=== PATIENT | male | born 1940 | race Caucasian/White ===

== ENCOUNTER 2018-04-01 16:06 | Emergency (ER) | payer MEDICARE ==
--- NOTE | 2018-04-01 16:43 | ED ---
Psychiatric Complaint - HPI Summary HPI Summary: This pt is a 77 y/o male presenting to [facility] for auditory and visual hallucinations since a couple of days ago. Pt reports that he has been seeing pictures very vividly and colorful as well as hearing his speak when she never did. He states usually his hallucinations happen when sleeping and waking up. Pt describes today he had a box of cookies that he was handing his but realized he didn't have anything at all. Per , pt had just started to wake up and was handing something to her that he didn't have physically. Denies slurred speech, abnormal gait, chest pain, SOB, fever. Pt reports hx of anxiety dreams in the past. Recent changes include new CPAP machine and pt believes the new ozone pipe cleaner is causing his hallucinations. Pt called his PCP (Dr. Emerson) and was advised to come to the ED. The last time he saw his PCP was 1 week ago for a routine visit where he had blood work and a flu shot. PMHx includes diabetes, anxiety, depression. - History Of Current Complaint Chief Complaint: EDGeneral Time Seen by Provider: 04/01/18 16:13 Hx Obtained From: Patient Onset/Duration: Lasting Days - 2, Still Present Timing: Days Severity Currently: Moderate Character: Anxious Aggravating Factor(s): Nothing Alleviating Factor(s): Nothing Associated Signs And Symptoms: Positive: Hallucinating Has Suicidal: Denies: Thoughts, With A Plan Has Homicidal: Denies: Thoughts, With A Plan - Allergies/Home Medications Allergies/Adverse Reactions: Allergies Allergy/AdvReac Type Severity Reaction Status Date / Time No Known Allergies Allergy Verified 04/01/18 16:11 Home Medications: Home Medications ARIPiprazole TAB* [Abilify TAB*] 5 mg PO BEDTIME 04/01/18 [History Confirmed ] Aspirin EC TAB* [Ecotrin EC Low Dose 81 MG*] 81 mg PO DAILY 04/01/18 [History Confirmed 04/01/18] Atorvastatin* [Lipitor*] 80 mg PO DAILY 04/01/18 [History Confirmed 04/01/18] Azelastine 0.15% NASAL(NF) [Astepro 0.15% NASAL (NF)] 2 spray BOTH NARES BID PRN 04/01/18 [History Confirmed 04/01/18] Cinnamon Bark [Cinnamon] 500 mg PO DAILY 04/01/18 [History Confirmed 04/01/18] Cyanocobalamin TAB* [Vitamin B12 TAB*] 1,000 mcg PO DAILY 04/01/18 [History Confirmed 04/01/18] Dicyclomine CAP* [Bentyl CAP*] 10 mg PO QID PRN 04/01/18 [History Confirmed 06/08] Fluticasone NASAL SPRAY 50MCG* [Flonase NASAL SPRAY 50MCG*] 2 spray BOTH NARES DAILY PRN 04/01/18 [History Confirmed 04/01/18] Glucosa Greene 2Kcl/Chondroitin Greene [Glucosamine & Chondroitin Cap] 2 cap PO DAILY [History Confirmed 04/01/18] Hyoscyamine TAB* [Anaspaz 0.125 MG TAB*] 0.125 mg PO Q6H PRN 04/01/18 [History Confirmed 04/01/18] LORazepam TAB(*) [Ativan 0.5 MG TAB (*)] 0.5 mg PO Q8H PRN 04/01/18 [History Confirmed 04/01/18] Levothyroxine TAB* [Synthroid TAB*] 25 mcg PO QAM 04/01/18 [History Confirmed ] Lisinopril TAB* [Prinivil TAB*] 20 mg PO DAILY 04/01/18 [History Confirmed 04/01] Metoprolol Tartrate TAB* [Lopressor TAB*] 50 mg PO BID 04/01/18 [History Confirmed 04/01/18] Miconazole Nitrate [Athletes Foot Powder] 2 % TOPICAL BID 04/01/18 [History Confirmed 04/01/18] Multivitamin [Daily Multiple Vitamins] 1 tab PO DAILY 04/01/18 [History Confirmed 04/01/18] Neomycin/Polym/HC OPTH.SUSP* [Cortisporin OPHTH.SUSP*] 2 drop BOTH EARS TID PRN 04/01/18 [History Confirmed 04/01/18] [place]-3 Fatty Acids (Nf) [Fish Oil (NF)] 1,000 mg PO DAILY 04/01/18 [History Confirmed 04/01/18] Sertraline* [Zoloft*] 200 mg PO DAILY 04/01/18 [History Confirmed 04/01/18] Torsemide TAB* [Demadex*] 20 mg PO DAILY 04/01/18 [History Confirmed 04/01/18] Triamcinolone 0.1% CREAM(NF) [Kenalog Cream 0.1%(NF)] 1 applic TOPICAL DAILY PRN 04/01/18 [History Confirmed 04/01/18] Vitamin B Complex TAB* [B Complex-50*] 1 tab PO DAILY 04/01/18 [History Confirmed 04/01/18] amLODIPine TAB* [Norvasc 5 mg TAB*] 10 mg PO DAILY 04/01/18 [History Confirmed 04/01/18] metFORMIN* [Glucophage 500 MG TAB *] 500 mg PO BID 04/01/18 [History Confirmed 04/01/18] traZODone TAB* [Desyrel TAB*] 50 mg PO BEDTIME PRN 04/01/18 [History Confirmed 04/01/18] PMH/Surg Hx/FS Hx/Imm Hx Endocrine/Hematology History: Reports: Hx Diabetes Cardiovascular History: Reports: Hx Hypercholesterolemia, Hx Hypertension Respiratory History: Reports: Hx Sleep Apnea History: Reports: Hx Chronic Renal Failure Psychiatric History: Reports: Hx Anxiety, Hx Depression Infectious Disease History: No Infectious Disease History: Denies: Traveled Outside the [place] in Last 30 Days - Family History Known Family History: Positive: Cardiac Disease, Hypertension - Social History Alcohol Use: None Substance Use Type: Reports: None Smoking Status (MU): Never Smoked Tobacco Review of Systems Negative: Fever, Chills Negative: Chest Pain Negative: Shortness Of Breath Negative: Abdominal Pain Psychological: Other - visual and auditory hallucinations All Other Systems Reviewed And Are Negative: Yes Physical Exam - Summary Physical Exam Summary: Appearance: The patient is well-nourished in no acute distress and in no acute pain. Skin: The skin is warm and dry and skin color reflects adequate perfusion. HEENT: The head is normocephalic and atraumatic. The pupils are equal and reactive. The conjunctivae are clear and without drainage. Nares are patent and without drainage. Mouth reveals moist mucous membranes and the throat is without erythema and exudate. The external ears are intact. The ear canals are patent and without drainage. The tympanic membranes are intact. Neck: the neck is supple with full range of motion and non-tender. There are no carotid bruits. There is no neck vein distension. Respiratory: Chest is non-tender. Lungs are clear to auscultation and breath sounds are symmetrical and equal. Cardiovascular: Heart is regular rate and rhythm. There is no murmur or rub auscultated. There is no peripheral edema and pulses are symmetrical and equal. Abdomen: The abdomen is soft and non-tender. There are normal bowel sounds heard in all four quadrants and there is no organomegaly palpated. Musculoskeletal: There is no back tenderness noted. Extremities are non-tender with full range of motion. There is good capillary refill. There is no peripheral edema or calf tenderness elicited. Neurological: Patient is alert and oriented to person, place and time. The patient has symmetrical motor strength in all four extremities. Cranial nerves are grossly intact. Deep tendon reflexes are symmetrical and equal in all four extremities. Psychiatric: The patient has an appropriate affect and does not exhibit any anxiety or depression. Triage Information Reviewed: Yes Vital Signs On Initial Exam: Initial Vitals Temp Pulse Resp BP Pulse Ox 97.4 F 96 16 145/64 99 04/01/18 16:09 04/01/18 16:09 04/01/18 16:09 04/01/18 16:09 04/01/18 16:09 Vital Signs Reviewed: Yes Diagnostics - Vital Signs Vital Signs Temp Pulse Resp BP Pulse Ox 04/01/18 16:09 97.4 F 96 16 145/64 99 - Laboratory Result Diagrams: 04/01/18 17:09 04/01/18 17:09 Lab Statement: Any lab studies that have been ordered have been reviewed, and results considered in the medical decision making process. Re-Evaluation - Re-Evaluation First Eval Re-Evaluation Time: 19:00 Comment: I reviewed lab results with the pt. He will be discharged home with follow up from his PCP. Course/Dx - Course Course Of Treatment: Mr. Saba presented with what sounded like hypnagogic hallucinations. He uses a CPAP to sleep and hasn't been sleeping well secondary to low back pain. His workup here was unremarkable and this made just be because he is not sleeping well. I recommended we try treating him with tramadol at night so that he can sleep better and get close follow-up with Dr. remington flores for further workup. We discussed the addictive nature of tramadol and he is willing to take a short course only. - Differential Dx/Clinical Impression Provider Diagnosis: Hypnagogic hallucinations Discharge - Sign-Out/Discharge Documenting (check all that apply): Patient Departure - Discharge - Discharge Plan Condition: Stable Disposition: HOME Prescriptions: traMADol TAB* [Ultram*] 50 mg PO Q6HR PRN #20 tab MDD 4 PRN Reason: Pain Patient Education Materials: Tramadol (By mouth) Referrals: Kodi Emerson MD [Primary Care Provider] - Additional Instructions: Please follow up with your primary care provider in 2-3 days. RETURN TO THE ED FOR ANY WORSENING SYMPTOMS. - Billing Disposition and Condition Condition: STABLE Disposition: Home - Attestation Statements Document Initiated by Scribe: Yes Documenting Scribe: Adriana Alvarez Provider For Whom Scribe is Documenting (Include Credential): Johnson Meyer MD Scribe Attestation: Adriana Trejo, scribed for Johnson Meyer MD on 04/01/18 at 2111. Scribe Documentation Reviewed: Yes Provider Attestation: The documentation as recorded by the Adriana macdonald accurately reflects the service I personally performed and the decisions made by , Johnson Meyer MD
[2018-04-01 17:23] LABS: ABS Basophils 0 10^3/ul (0-0.2); ABS Eosinophils 0.2 10^3/ul (0-0.6); ABS Lymphocytes 1.2 10^3/ul (1.0-4.8); ABS Monocytes 0.5 10^3/ul (0-0.8); ABS Neutrophils 3.6 10^3/ul (1.5-7.7); ABS Nucleated RBC 0 10^3/ul; Hematocrit 38 % (42-52); Hemoglobin 12.6 g/dl (14.0-18.0); Lymphocyte % 22.5 % (25-47); Mean Corpuscular HGB Conc 34 g/dl (31-36); Mean Corpuscular Hemoglobin 31 pg (27-31); Mean Corpuscular Volume 92 fL (80-94); Mean Platelet Volume 7.9 um3 (7.4-10.4); Nucleated Red Blood Cells % 0; Platelet Count 157 10^3/ul (150-450); Red Blood Count 4.07 10^6/ul (4.00-5.40); Red Cell Distribution Width 15 % (10.5-15); White Blood Count 5.5 10^3/ul (3.5-10.8)
[2018-04-01 17:48] LABS: EGFR Non-African American 38.6 (>60)
[2018-04-01 19:42] VITALS: BP 116/69
== END 2018-04-01 19:43 | disposition home or self-care (01) ==
LOC: ED 16:06
DX: R44.2 Other hallucinations (principal); E11.8 Type 2 diabetes mellitus with unspecified complications; E78.00 Pure hypercholesterolemia, unspecified; I10 Essential (primary) hypertension; Z79.84 Long term (current) use of oral hypoglycemic drugs
CPT/HCPCS: 36415; 80053; 82140; 83735; 84100; 85025; 86140; 99283

== ENCOUNTER 2018-12-16 06:20 | Day surgery (SDC) | payer MEDICARE ==
[2018-12-16] MEDS ORDERED: Lidocaine 2% PF * 5 ML VIAL ONE (07:51)
[2018-12-16] MEDS ORDERED: fentaNYL* 50 MCG/ML 2 ML VIAL (100 MCG VIAL) ONE (07:51)
[2018-12-16] MEDS ORDERED: Propofol* 10 MG/ML 20 ML BTL ONE (07:51)
[2018-12-16] MEDS ORDERED: Lidocaine 1% INJ* 10 MG/ML 30 ML SDV ONE (08:12)
[2018-12-16] MEDS ORDERED: Naloxone* 0.4 MG/ML 1 ML VIAL IV PRN (08:33)
[2018-12-16 10:29] VITALS: BP 114/60
--- NOTE | 2018-12-16 13:18 | OP ---
CC: Dr. Pérez* OPERATIVE REPORT: DATE OF OPERATION: 12/16/18 - SDS DATE OF : 38 SURGEON: Nicole Pérez MD. EDITING INTERN: SYLVIA Guerrero. ANESTHESIOLOGIST: Rodrick Patton MD. ANESTHESIA: Local MAC. 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 OPERATIVE PROCEDURE: Left ring finger trigger release and correction of boutonniere deformity. ESTIMATED BLOOD LOSS: Zero. TOURNIQUET TIME: About 30 minutes. INDICATION FOR PROCEDURE: Delbert is a 78-year-old male who has a flexion deformity of his ring finger PIP joint secondary to trigger finger. He has a contracture and a resultant boutonniere deformity, presents for trigger finger release and correction of the boutonniere deformity. DESCRIPTION OF PROCEDURE: The patient was brought to the operating room, was given a sedation anesthetic and a digital block with 10 cc of 1% plain lidocaine. The skin of his left hand and forearm was prepped and draped in usual sterile fashion. The hand and forearm were exsanguinated and tourniquet elevated to 250 mmHg, a transverse incision was made centered over the A1 main of the left ring finger. We dissected through the subcutaneous tissue down to the main. Main was incised longitudinally completely releasing the flexor tendons, which were in good condition. The boutonniere deformity remained, but we were able to correct it some with manual traction at the PIP joint. A longitudinal incision was made on the dorsal aspect from the PIP to the DIP joint. We dissected full-thickness skin flaps down to the extensor mechanism. The terminal tendon was incised transversely just distal to the triangular ligament. The transverse retinacular ligaments were released and this allowed the central tendon to centralize over the PIP joint. We then sutured the lateral bands to each other and to the central tendon dorsally to improve the extensor moment at the PIP joint and we gently flexed the DIP joint to improve that motion as well. There was still some tightness and contracture at the PIP joint. The wounds were irrigated and skin edges were reapproximated with 4-0 nylon suture. The wounds were dressed with Xeroform, 4x4, Webril and a AlumaFoam splint to help keep the PIP joint in extension. The patient tolerated the procedure well, was brought to the recovery room in good condition. [id number]/[facility] #: [id number] DHAVAL
== END 2018-12-16 10:41 | disposition home or self-care (01) ==
LOC: OR 06:20
PROVIDERS: ATTEND Orthopaedic Surgery
DX: M20.022 Boutonniere deformity of left finger(s) (principal); G47.33 Obstructive sleep apnea (adult) (pediatric); Z87.891 Personal history of nicotine dependence; Z68.42 Body mass index [BMI] 45.0-49.9, adult; E03.9 Hypothyroidism, unspecified; F41.8 Other specified anxiety disorders; E11.9 Type 2 diabetes mellitus without complications; Z79.84 Long term (current) use of oral hypoglycemic drugs
CPT/HCPCS: J2704; J3010

== ENCOUNTER 2018-12-23 11:04 | Inpatient (IN) | payer MEDICARE ==
--- OUTSIDE RECORDS SUMMARY | 2018-12-23 11:31 | XMS REPORT | Continuity of Care Document ---
:1940 External Reference #:[id number] Author Name Kodyamy Keerthi Care Team Providers Name Role Phone Kodi Emerson MD Primary Care Physician Unavailable Payers Date Identification Numbers Payment Provider Subscriber Policy Number: [id number] Medicare Blue Ppo Delbert Saba PayID: [id number] [address] [address] [place] [address] Advance Directives Description No Information Available Problems Description No Information Family History Date Family Member(s) Observation Comments General Heart Disease General Hypertension Social History Type Date Description Comments Sex Unknown Lives With Spouse Occupation Retired ETOH Use Rarely consumes alcohol Tobacco Use Start: Unknown End: Patient is a former quit 35 years ago Unknown smoker Smoking Status Reviewed: 11/24/18 Patient is a former quit 35 years ago smoker Exercise Type/Frequency Exercises sporadically Allergies, Adverse Reactions, Alerts Description No Known Drug Allergies Medications Active Medications SIG Qnty Indications Ordering Date Provider Vitamin B Complex-C Unknown Capsules Triamcinolone Acetonide apply to affected Unknown area twice a day 0.025% Cream for 2-3 days as need for dermatiits Torsemide 1 by mouth every Unknown 20mg Tablets day Sertraline HCL 1 by mouth every Unknown 100mg day Tablets Aspirin 81 Unknown [place] 3 1 by mouth twice a Unknown 1000mg Capsules day Neomycin/Polymyxin/Hydr Unknown ocortisone (Ophthalmic) Lorazepam Unknown 0.5mg Tablets Hyoscyamine Sulfate one by mouth three Unknown 0.125mg times a day as Tablets needed for cramps Glucosamine Chondroitin Unknown 1500 Complex 1500Com Capsules Fluticasone Propionate 2 puffs each nare Unknown every in the 50mcg/Act Suspension morning Daily-Vitamin by mouth every day Unknown Tablets Cyanocobalamin Unknown Cinnamon Unknown Trazodone HCL Kodi Emerson, 50mg Tablets Tramadol HCL Johnson Meyer, 50mg Tablets Metformin HCL Kodi Emerson, 1000mg MD Tablets Lisinopril Kodi Emerson, 20mg Tablets Levothyroxine Sodium Kodi Emerson, 25mcg MD Tablets Dicyclomine HCL Kodi Emerson, 10mg MD Capsules Amlodipine Besylate Kodi Emerson, 10mg MD Tablets Aripiprazole Kodi Emerson, 5mg Tablets Atorvastatin Calcium Jorge Atic, 80mg Genaro Carney MD Tablets Medications Administered in Office Medication SIG Qnty Indications Ordering Provider Date Depomedrol 40MG Nicole Pérez M.D. 09/29/2018 Injection Immunizations Description No Information Available Vital Signs Date Vital Result Comment 11/24/2018 11:03am Height 68 inches 5'8" Weight 299.75 lb Heart Rate 62 /min BP Systolic 148 mmHg BP Diastolic 62 mmHg Body Temperature 97.8 F Pain Level 1 BMI (Body Mass Index) 45.6 kg/m2 10/16/2018 9:52am Height 68 inches 5'8" Weight 308.00 lb BP Systolic 140 mmHg BP Diastolic 76 mmHg Respiratory Rate 18 /min Body Temperature 95.7 F Pain Level 0 BMI (Body Mass Index) 46.8 kg/m2 09/29/2018 9:16am Height 68 inches 5'8" Weight 308.00 lb Heart Rate 68 /min BP Systolic 134 mmHg BP Diastolic 72 mmHg Body Temperature 97.8 F Pain Level 5 BMI (Body Mass Index) 46.8 kg/m2 Results Description No Information Available Procedures Date Code Description Status 09/29/2018 75104 Inject Tendon Sheath Or Ligament Aponeurosis Eg Plantar Completed Fascia Encounters Type Date Location Provider Dx Diagnosis Office Visit 10/16/2018 [facility] Nicole Pérez, M65.342 Trigger finger , 9:[facility]a [facility] left ring finger M20.032 [place]-neck deformity of left finger(s) Office Visit 09/29/2018 8:30a [facility] Nicole Pérez M65.342 [facility] finger, left [facility] ring finger Plan of Treatment Future Appointment(s):12/25/2018 11:30 am - Nicole Pérez M.D. at [facility]12/16/2018 7:30 am - PRAKASH Guerrero at [facility]/2018 7:30 am - Nicole Pérez M.D. at [facility]11/24/2018 - SYLVIA Reid-CM65.342 Trigger finger, left ring [id number] [place]-neck deformity of left finger(s)Follow up:Follow up: follow up 9 - 10 days post op
[2018-12-23] MEDS ORDERED: fentaNYL* 50 MCG/ML 2 ML VIAL (100 MCG VIAL) IV SLOW PU ONE (11:40)
[2018-12-23] MEDS ORDERED: Ondansetron INJ* 2 MG/ML VIAL IV ONE (11:41)
[2018-12-23] MEDS ORDERED: NS 0.9% 500 ML* 500 ML IV ONE (11:41)
--- NOTE | 2018-12-23 11:43 | ED ---
Lower Extremity - HPI Summary HPI Summary: This pt is a 78 y/o male presenting to [facility] via EMS for bilateral feet pain and lower back pain for the past few days. Pt reports he has hx of arthritis and multiple surgeries for this (including right shoulder replacement x2, finger surgery last week by Dr. Pérez). Pt states lately he has been unable to get up and move on his own secondary to pain. Denies any radiating pain from his back. Denies urinary or bowel dysfunction, chest pain, SOB. Pt has been taking Tylenol at home as well as pain medications prescribed by Dr. Pérez for his finger with mild relief. Pt has been to physical therapy in the past, most recent when he had his shoulder replaced. PMHx includes arthritis, sleep apnea, DM. Denies hx of CHF, PE, DVT. He uses a CPAP at night at home. Pt does not use oxygen at baseline. NKDA. - History of Current Complaint Chief Complaint: EDExtremityLower Stated Complaint: FOOT PAIN Time Seen by Provider: 12/23/18 11:11 Hx Obtained From: Patient Mechanism Of Injury: Other - no known trauma Onset of Pain: Days Onset/Duration: Days Severity Currently: Moderate Pain Intensity: 5 Pain Scale Used: 0-10 Numeric Timing: Lasting Days Location: Is Discrete @ - bilateral feet Associated Signs And Symptoms: Positive: Swelling, Other - back pain Aggravating Factor(s): Nothing Alleviating Factor(s): Nothing Able to Bear Weight: Yes - Allergies/Home Medications Allergies/Adverse Reactions: Allergies Allergy/AdvReac Type Severity Reaction Status Date / Time No Known Allergies Allergy Verified 12/23/18 11:14 Home Medications: Home Medications Acetaminop/Codeine 30 MG TAB* 1 tab PO Q4H PRN 12/23/18 [History Confirmed 12/23] Dicyclomine CAP* [Bentyl CAP*] 10 mg PO QID PRN 12/23/18 [History Confirmed 11/07] Flonase NASAL SPRAY 50MCG* 2 spray BOTH NARES DAILY PRN 12/23/18 [History Confirmed 12/23/18] Metformin HCl 500 mg PO BID 12/23/18 [History Confirmed 12/23/18] Miconazole TOPICAL CREAM 2%* 1 applic TOPICAL BID 12/23/18 [History Confirmed ] PMH/Surg Hx/FS Hx/Imm Hx Endocrine/Hematology History: Reports: Hx Diabetes - TYPE II- ON ORAL MEDICATION FOR, Hx Thyroid Disease - ON MEDICATION FOR Cardiovascular History: Reports: Hx Hypercholesterolemia, Hx Hypertension - ON MEDICATION FOR Denies: Hx Pacemaker/ICD, Other Cardiovascular Problems/Disorders Respiratory History: Reports: Hx Sleep Apnea GI History: Reports: Hx Irritable Bowel - LOOSE BOWELS OFTEN Denies: Other GI Disorders History: Reports: Hx Chronic Renal Failure Denies: Other Problems/Disorders Musculoskeletal History: Reports: Hx Arthritis - LOWER SPINE, FINGERS, Other Musculoskeletal History - BILATERAL KNEE REPLACEMENT, RIGHT SHOULDER REPLACEMENT X 2 Sensory History: Reports: Hx Cataracts, Hx Contacts or Glasses - READING GLASSES Denies: Hx Hearing Aid Opthamlomology History: Reports: Hx Cataracts, Hx Contacts or Glasses - READING GLASSES Neurological History: Reports: Hx Migraine - HX OF - NONE IN RECENT YEARS, Other Neuro Impairments/Disorders - HANDS WITH A SLIGHT TREMOR Psychiatric History: Reports: Hx Anxiety - ON MEDICATION FOR, Hx Depression - ON MEDICATION FOR - Surgical History Surgery Procedure, Year, and Place: BILATERAL CATARACT REMOVAL WITH LENS IMPLANT. BILATERAL KNEE REPLACEMENT. RIGHT SHOULDER REPLACEMENT X 2. CARPAL TUNNEL RELEASE BILATERAL. RIGHT HAND SURGERY FOR INFECTION. RIGHT FOOT- 2ND TOE SURGERY FOR FRACTURE. [place] SURGERY Hx Anesthesia Reactions: No Infectious Disease History: No Infectious Disease History: Denies: Traveled Outside the [place] in Last 30 Days - Family History Known Family History: Positive: Cardiac Disease, Hypertension - Social History Alcohol Use: Occasionally Alcohol Amount: 1 DRINK INFREQUENTLY Substance Use Type: Reports: None Smoking Status (MU): Former Smoker Amount Used/How Often: PIPE OR CIGARS X 25 YEARS Have You Smoked in the Last Year: No Review of Systems Negative: Fever, Chills Negative: Chest Pain Negative: Shortness Of Breath Negative: incontinence Musculoskeletal: Other - POS: lower back pain, bilateral feet pain All Other Systems Reviewed And Are Negative: Yes Physical Exam - Summary Physical Exam Summary: GENERAL: Patient is a well-developed and nourished male who is lying comfortable in the stretcher. Patient is not in any acute respiratory distress. HEAD AND FACE: Normocephalic EYES: PERRLA, EOMI x 2. EARS: Hearing grossly intact. MOUTH: Oropharynx within normal limits. NECK: Supple, trachea is midline, no adenopathy, no JVD, no carotid bruit. CHEST: Symmetric, no tenderness at palpation LUNGS: Clear to auscultation bilaterally. No wheezing or crackles. CVS: Regular rate and rhythm, S1 and S2 present, no murmurs or gallops appreciated. ABDOMEN: Soft, non-tender. Bowel sounds are normal. No abnormal abdominal pulsations. EXTREMITIES: Full ROM in all major joints, no cyanosis or clubbing. Edema in bilateral lower extremities, worse on the right than the left. RLE is 3+ and LLE is 2+. NEURO: Alert and oriented x 3. No acute neurological deficits. Speech is normal and follows commands. SKIN: Dry and warm Triage Information Reviewed: Yes Vital Signs On Initial Exam: Initial Vitals Temp Pulse Resp BP Pulse Ox 99.4 F 107 22 116/60 97 12/23/18 11:11 12/23/18 11:11 12/23/18 11:11 12/23/18 11:11 12/23/18 11:11 Vital Signs Reviewed: Yes Diagnostics - Vital Signs Vital Signs Temp Pulse Resp BP Pulse Ox 12/23/18 11:11 99.4 F 107 22 116/60 97 - Laboratory Result Diagrams: 12/23/18 12:08 12/23/18 12:08 Lab Statement: Any lab studies that have been ordered have been reviewed, and results considered in the medical decision making process. - CT Chest CTA CT Interpretation Completed By: Radiologist Summary of CT Findings: IMPRESSION: Limited study. No pulmonary arterial filling defect to suggest pulmonary embolism. Dr. Olea has reviewed this report. Lumbar spine CT CT Interpretation Completed By: Radiologist Summary of CT Findings: IMPRESSION: 1. Degenerative disc disease and osteoarthritis. 2. There is severe narrowing of the central canal at L2-L3, L3- L4, and L4-L5 with mild narrowing at L1-L2. 3. There is multilevel neural foraminal narrowing as described above. 4. Atherosclerosis. 5. [address] Olea has reviewed this report. - Ultrasound No standard instances Ultrasound Interpretation Completed By: Radiologist Summary of Ultrasound Findings: Bilateral Lower Extremity US IMPRESSION: No right lower extremity deep vein thrombosis. No left lower extremity deep vein thrombosis. Dr. Olea has reviewed this report. - EKG 11:41 Cardiac Rate: Tachycardia - at 106 bpm Summary of EKG Findings: Junctional rhythm at 106 bpm. Prolonged QT. Left axis deviation. 12:30 Cardiac Rate: Tachycardia - at 103 bpm EKG Rhythm: Sinus Tachycardia Summary of EKG Findings: QT looks better. Left axis deviation. Re-Evaluation - Re-Evaluation First Eval Re-Evaluation Time: 15:25 Comment: Pt reports he is unable to get up and move around. He has difficulty ambulating. Discussed admission plan. He understands and agrees. Lower Extremity Course/Dx - Course Assessment/Plan: Pt is a 78 y/o male, with hx of arthritis, presenting to [facility] via EMS for bilateral feet pain and lower back pain for the past few days. Lab results unremarkable except for H/H of 12.1/36, creatinine of 1.62, glucose of 169. Bilateral lower extremity US is negative for DVT. CTA chest is negative for PE. Lumbar spine CT shows degenerative disc disease and osteoarthritis. Patient is not a safe discharge. Patient has difficulty ambulating. Case discussed with Dr. Wolff, hospitalist, who accepted the pt for admission. I discussed results with patient. The patient agrees with this plan. - Diagnoses Provider Diagnoses: Difficulty walking - Physician Notifications Discussed Care Of Patient With: Sushil Wolff - hospitalist Time Discussed With Above Provider: 15:57 Instructed by Provider To: Admit As Inpatient Discharge - Sign-Out/Discharge Documenting (check all that apply): Patient Departure - Admit to [facility] [place] [facility] Patient Received Moderate/Deep Sedation with Procedure: No - Discharge Plan Condition: Stable Disposition: ADMITTED TO [facility] - Billing Disposition and Condition Condition: STABLE Disposition: Admitted to [facility] - Attestation Statements Document Initiated by Lisa: Yes Documenting Scribe: Adriana Alvarez Provider For Whom Lisa is Documenting (Include Credential): Deonte Olea MD Scribe Attestation: Adriana Trejo, scribed for Deonte Olea MD on 12/23/18 at 1917. Scribe Documentation Reviewed: Yes Provider Attestation: The documentation as recorded by the Adriana macdonald accurately reflects the service I personally performed and the decisions made by me, Deonte Olea MD Status of Scribe Document: Viewed
[2018-12-23 12:37] LABS: ABS Eosinophils 0.1 10^3/ul (0-0.6); ABS Lymphocytes 0.8 10^3/ul (1.0-4.8); ABS Monocytes 0.9 10^3/ul (0-0.8); ABS Neutrophils 7.3 10^3/ul (1.5-7.7); Eosinophil % 0.8 %; Hematocrit 36 % (42-52); Hemoglobin 12.1 g/dL (14.0-18.0); Lymphocyte % 8.5 %; Mean Corpuscular HGB Conc 34 g/dL (31-36); Mean Corpuscular Hemoglobin 31 pg (27-31); Mean Corpuscular Volume 94 fL (80-94); Mean Platelet Volume 7.5 fL (7.4-10.4); Platelet Count 194 10^3/uL (150-450); Red Blood Count 3.84 10^6 /uL (4.18-5.48); Red Cell Distribution Width 14 % (10.5-15)
[2018-12-23 12:48] LABS: Activated Partial Thrombo Time 30.9 seconds (26.0-38.0); Albumin 3.8 g/dL (3.2-5.2); Albumin/Globulin Ratio 1.1 (1-3); BUN/Creatinine Ratio 18.5 (8-20); Calcium 9.1 mg/dL (8.6-10.3); EGFR Non-African American 41.3 (>60); Globulin 3.5 g/dL (2-4); INR 1.19 (0.82-1.09); Potassium 4.9 mmol/L (3.5-5.0); Total Bilirubin 0.6 mg/dL (0.2-1.0); Total Protein 7.3 g/dL (6.4-8.9)
[2018-12-23] MEDS ORDERED: Iodixanol* (CONTRAST) 320 MG/ML 100 ML SDV IV ONE (13:39)
[2018-12-23 15:30] LABS: CRP High Sensitivity 164.2 mg/L (<2.00)
[2018-12-23] MEDS ORDERED: traMADol TAB* 50 MG PO PRN (17:04)
[2018-12-23] MEDS ORDERED: LORazepam TAB(*) 0.5 MG PO PRN (17:05)
[2018-12-23] MEDS ORDERED: Dicyclomine CAP* 10 MG PO PRN (17:05)
[2018-12-23] MEDS ORDERED: NFT: Azelastine 0.15% NASAL(NF) 30 ML BTL BOTH NARES PRN (17:05)
[2018-12-23] MEDS ORDERED: Ondansetron INJ* 2 MG/ML VIAL IV PRN (17:19)
[2018-12-23] MEDS ORDERED: methylPREDNISolone 125 MG* 2 ML VIAL IV ONE ×2 (17:32→20:07)
--- NOTE | 2018-12-23 19:16 | HP ---
CC: Dr. Emerson * ADMISSION HISTORY AND PHYSICAL: DATE OF ADMISSION: 12/23/18 PRIMARY CARE PROVIDER: Dr. Emerson. HEALTHCARE PROXY: His . CODE STATUS: Full. SOURCE OF INFORMATION: History obtained from interview with the patient and his . RELIABILITY: Fair. CHIEF COMPLAINT: Lower back pain, inability to ambulate. HISTORY OF PRESENT ILLNESS: A 78-year-old man with past medical history including chronic lower back pain as well as intermittent bilateral foot pain, had been in his usual state of health until approximately a week and a half ago had surgery on his left fourth finger. Since that time, he has been unable to ambulate up stairs in his home, has been sleeping in a recliner, had increasing lower back pain and now bilateral foot pain in his heels as well as in the area surrounding his Achilles tendon. He has been unable to get out of his chair. His has been helping with increasing difficulty. He wears a brief at home with urine, but it has been more difficult to remain clean with his stool. He takes tramadol at home for his pain; however, it has lost effect and he continues to have bilateral foot as well as back pain limiting his ability to ambulate. In the past, he has worn a brace and Randy wraps that have helped. He achieved no success with the intervention at this time. He notes because he ___ ___ he has been eating less. There is no bowel or bladder incontinence, although he is having difficulty to ambulate to the bathroom secondary to his weakness. PAST MEDICAL HISTORY: Includes chronic lower back pain; MARIA DEL CARMEN, on CPAP; type 2 diabetes; hyperlipidemia; hypertension; IBS; CKD; arthritis; cataracts; migraines; depression; anxiety. PAST SURGICAL HISTORY: History of bilateral knee replacements, right shoulder replacement x2, bilateral carpal tunnel release, swan-neck deformity of fourth left finger . HOME MEDICATIONS: 1. Acetaminophen and codeine 30 mg every 4 hours as needed. 2. Bentyl 10 mg 4 times a day as needed. 3. Cinnamon bark 500 mg in the morning. 4. Acetaminophen 1000 mg daily as needed. 5. Trazodone 50 mg at bedtime. 6. Tramadol 50 mg 4 times a day as needed. 7. Neomycin, polymyxin, and hydrocortisone drops 3 times a day as needed. 8. Aspirin 81 mg in the evening. 9. Vitamin B complex 1 tab daily. 10. Triamcinolone cream. 11. Torsemide 20 mg daily. 12. Zoloft 200 mg daily. 13. Florence-3 DHA, EPA, ALA/vitamin D3 gummies daily. 14. Miconazole cream topically twice daily. 15. Metoprolol 50 mg twice daily. 16. Metformin 500 mg twice daily. 17. Lisinopril 20 mg daily. 18. Levothyroxine 25 mcg in the morning. 19. Lorazepam 0.5 mg 3 times a day as needed. 20. Hyoscyamine 0.125 mg 4 times a day as needed. 21. Flonase 2 sprays both nares daily as needed. 22. Multivitamin 1 tab daily. 23. Amlodipine 10 mg daily. 24. Cyanocobalamin 1000 mcg daily. 25. Astepro 2 sprays both nares twice daily as needed. 26. Atorvastatin 80 mg in the morning. 27. Aripiprazole 5 mg at bedtime. ALLERGIES: No known drug allergies. FAMILY HISTORY: Father and mother with CAD. SOCIAL HISTORY: Quit tobacco 30 years prior, smoked for 20 years prior to that. Drinks about 1 alcoholic drink per week. REVIEW OF SYSTEMS: As per HPI. Otherwise, all other systems negative. PHYSICAL EXAMINATION GENERAL: Obese man, sitting up in bed, in no apparent distress. VITAL SIGNS: In the emergency room, 119/81, heart rate is 92, respiratory rate was between 18 and 25, he is 96% on 2 L, T-max is 99.4. HEENT: Oropharynx is clear. Moist mucous membranes. Sclerae are anicteric. LUNGS: Difficult to appreciate. He has difficulty sitting up or lying on the side of the bed. Anteriorly, they are clear. HEART: He has regular rate and rhythm. ABDOMEN: Soft, nontender, nondistended. EXTREMITIES: Warm and well perfused. He has 2+ bilateral pitting edema. He has tenderness on the area of his bilateral medial malleoli as well as over his Achilles tendons. NEUROLOGIC: He is alert and oriented x3. His cranial nerves II through XII are intact. He has intact sensation and strength in the lower extremity, limited by weakness in the proximal muscles. DIAGNOSTIC STUDIES/LAB DATA: Labs reviewed, notable for hemoglobin of 12.1. BUN is 30, his creatinine is 1.62, glucose 169. Data reviewed, notable for: 1. CTA chest and thorax: No evidence of PE. 2. Lower extremity venous Doppler studies: No right lower extremity DVT or left lower extremity DVT. 3. CT lumbar spine, impression: Degenerative disk disease, osteoarthritis, severe narrowing of the central canal at L2-L3, L3-L4 and L4-L5 with moderate narrowing at L1-L2, multilevel neuroforaminal narrowing, atherosclerosis and cholelithiasis. ASSESSMENT AND PLAN: A 78-year-old man with past medical history as outlined above, presenting with increased back pain and foot pain after sleeping in the recliner for 1 week without associated neurological findings, admitted to the hospital for pain control as well as debility, incidentally found with new oxygen requirement in the emergency room. 1. Hypoxic respiratory failure. Suspect in the setting of atelectasis. CTA benign. Incentive spirometry while in the hospital. 2. Pain. Continue tramadol. Add on oxycodone. Try to avoid IV narcotics if possible. One high-dose methylprednisolone in the emergency room to help with any underlying inflammation. 3. Type 2 diabetes. Continue home metformin. Baseline creatinine is at or below baseline at this moment. 4. Obstructive sleep apnea. Continue CPAP, hospital equipment. 5. Chronic kidney disease noted. 6. DVT prophylaxis: Heparin subcu. [id number]/[facility] #: [id number] [facility]ER HOSPITALNeeraj
[2018-12-23] MEDS: oxyCODONE/Acetamin 5/325 MG* TAB PO PRN (22:29)
[2018-12-23] MEDS: traZODone TAB* 50 MG TAB PO SCH (22:29)
[2018-12-23] MEDS: Aspirin EC TAB* 81 MG TAB.EC PO SCH (22:29)
[2018-12-23] MEDS: Metoprolol Tartrate TAB* 50 mg PO SCH (22:30)
[2018-12-23] MEDS: metFORMIN* 1,000 MG TAB PO SCH (22:30)
[2018-12-23] MEDS: Heparin VIAL(*) 5000 UNITS/ML VIAL (FIVE THOUSAND) SUBCUT SCH (22:31)
[2018-12-23] MEDS: ARIPiprazole TAB* 5 MG PO SCH (22:31)
[2018-12-24] MEDS: oxyCODONE/Acetamin 5/325 MG* TAB PO PRN ×2 (06:12→22:03)
[2018-12-24] MEDS: Heparin VIAL(*) 5000 UNITS/ML VIAL (FIVE THOUSAND) SUBCUT SCH ×3 (06:13→22:03)
[2018-12-24] MEDS: Levothyroxine TAB* 25 MCG TAB PO SCH (06:13)
[2018-12-24] MEDS: Sertraline* 100 MG TAB PO SCH (08:24)
[2018-12-24] MEDS: Torsemide TAB 10 MG PO SCH (08:24)
[2018-12-24] MEDS: Lisinopril TAB* 10 MG PO SCH (08:24)
[2018-12-24] MEDS: Cyanocobalamin TAB* 500 MCG PO SCH (08:24)
[2018-12-24] MEDS: amLODIPine TAB* 5 MG PO SCH (08:24)
[2018-12-24] MEDS: Metoprolol Tartrate TAB* 50 mg PO SCH ×2 (08:24→22:02)
[2018-12-24] MEDS: Atorvastatin* 80 MG TAB PO SCH (08:24)
[2018-12-24] MEDS: metFORMIN* 1,000 MG TAB PO SCH ×2 (08:24→22:01)
[2018-12-24] MEDS: Vitamin B Complex TAB PO SCH (08:53)
[2018-12-24] MEDS: Prenatal Vitamin TAB PO SCH (08:53)
--- NOTE | 2018-12-24 15:51 | PN ---
Subjective Date of Service: 12/24/18 Interval History: Mr. Saba is feeling ok this morning. He offers no complaints. Denies SOB or cough. No CP or N/V. Has been eating well. He believes that he would be able to go home and manage fine if he had a bed on his lower level, but is possibly open to rehab if his insurance will cover. No concerns from nursing. Family History: Unchanged from Admission Social History: Unchanged from Admission Past Medical History: Unchanged from Admission Objective Active Medications: Amlodipine Besylate (Norvasc Tab*) 10 mg PO QAM CAROL ANN Aripiprazole (Abilify Tab*) 5 mg PO BEDTIME CAROL ANN Aspirin (Aspirin Ec Tab*) 81 mg PO QPM CAROL ANN Atorvastatin Calcium (Lipitor*) 80 mg PO QAM CAROL ANN Azelastine HCl (Astepro 0.15% Nasal (Nf)) 2 spray BOTH NARES BID PRN Allergy Symptoms Cyanocobalamin (Vitamin B12 Tab*) 1,000 mcg PO QAM CAROL ANN Dicyclomine HCl (Bentyl Cap*) 10 mg PO QID PRN PAIN Heparin Sodium (Porcine) (Heparin Vial(*)) 5,000 units SUBCUT Q8HR [facility] Levothyroxine Sodium (Synthroid Tab*) 25 mcg PO 0600 CAROL ANN Lisinopril (Prinivil Tab*) 20 mg PO DAILY CAROL ANN Lorazepam (Ativan Tab(*)) 0.5 mg PO Q8H PRN ANXIETY Metformin HCl (Glucophage*) 500 mg PO BID [facility] Metoprolol Tartrate (Lopressor Tab*) 50 mg PO BID [facility] Multivitamins ( Vitamin Tab*) 1 tab PO QAM [facility] Ondansetron HCl (Zofran Inj*) 4 mg IV Q4H PRN NAUSEA/VOMITING Oxycodone/Acetaminophen (Percocet 5/325 Tab*) 1 tab PO Q4H PRN SEVERE PAIN Sertraline HCl (Zoloft*) 200 mg PO DAILY CAROL ANN Torsemide (Torsemide) 20 mg PO DAILY CAROL ANN Tramadol HCl (Ultram*) 50 mg PO Q6H PRN PAIN Trazodone HCl (Desyrel Tab*) 50 mg PO BEDTIME CAROL ANN Vitamin B Complex/Vitamin E (B Complex-50*) 1 tab PO QAM [facility] Vital Signs - 8 hr 12/24/18 12/24/18 12/24/18 07:50 08:23 11:26 Temperature 97.8 F 97.6 F Pulse Rate 73 67 Respiratory 20 18 19 Rate Blood Pressure 112/47 97/47 (mmHg) O2 Sat by Pulse 98 100 Oximetry Oxygen Devices in Use Now: Nasal Cannula - 2L Appearance: Elderly male sitting in chair in NAD Eyes: No Scleral Icterus Ears/Nose/Mouth/Throat: Mucous Membranes Moist Neck: NL Appearance and Movements; NL JVP, Trachea Midline Respiratory: Symmetrical Chest Expansion and Respiratory Effort, Clear to Auscultation Cardiovascular: NL Sounds; No Murmurs; No JVD, RRR Abdominal: NL Sounds; No Tenderness; No Distention Neurological: Alert and Oriented x 3 Lines/Tubes/Other Access: Clean, Dry and Intact Peripheral IV Nutrition: Taking PO's Result Diagrams: 12/23/18 12:08 12/23/18 12:08 Assess/Plan/Problems-Billing Assessment: MR. Saba is a 78 yo M with PMH of DM2, HTN, MARIA DEL CARMEN, HLD, CKD, and chronic pain; who presented to the ED with c/o low back pain and inability to ambulate and care for himself at home. - Patient Problems (1) Acute respiratory failure with hypoxia Code(s): J96.01 - ACUTE RESPIRATORY FAILURE WITH HYPOXIA Comment: - Requiring up to 2L - Secondary to atelectasis from imobility; likely also component of obesity hypoventilation syndrome - Incentive spirometer (2) Low back pain Code(s): M54.5 - LOW BACK PAIN Comment: - Chronic, but worse than baseline - PT/OT as this is affecting his ability to care for himself at home - Continue tramadol (3) Diabetes mellitus, type 2 Comment: - Continue metformin (4) Hypertension Code(s): I10 - ESSENTIAL (PRIMARY) HYPERTENSION Comment: - Normotensive - Continue amlodipine, lisinopril, metoprolol (5) Hyperlipidemia Code(s): E78.5 - HYPERLIPIDEMIA, UNSPECIFIED Comment: - Continue atorvastatin (6) CKD (chronic kidney disease) stage 3, GFR 30-59 ml/min Code(s): N18.3 - CHRONIC KIDNEY DISEASE, STAGE 3 (MODERATE) Comment: - Creatinine at baseline (7) MARIA DEL CARMEN (obstructive sleep apnea) Code(s): G47.33 - OBSTRUCTIVE SLEEP APNEA (ADULT) (PEDIATRIC) Comment: - CPAP (8) IBS (irritable bowel syndrome) Comment: - Continue Bentyl (9) Hypothyroidism Code(s): E03.9 - HYPOTHYROIDISM, UNSPECIFIED Comment: - Continue levothyroxine (10) DVT prophylaxis Code(s): Z29.9 - ENCOUNTER FOR PROPHYLACTIC MEASURES, UNSPECIFIED Comment: - Heparin SQ (11) Full code status Code(s): Z78.9 - OTHER SPECIFIED HEALTH STATUS Comment: Status and Disposition: Observation. Will likely need MELYSSA as he is not able to care for himself at home. Attending: Sulma Washington
[2018-12-24] MEDS: Aspirin EC TAB* 81 MG TAB.EC PO SCH (16:48)
[2018-12-24] MEDS: traZODone TAB* 50 MG TAB PO SCH (22:01)
[2018-12-24] MEDS: ARIPiprazole TAB* 5 MG PO SCH (22:02)
[2018-12-25] MEDS: Levothyroxine TAB* 25 MCG TAB PO SCH (06:04)
[2018-12-25] MEDS: Heparin VIAL(*) 5000 UNITS/ML VIAL (FIVE THOUSAND) SUBCUT SCH ×3 (06:04→21:22)
[2018-12-25] MEDS: metFORMIN* 1,000 MG TAB PO SCH ×2 (09:43→21:21)
[2018-12-25] MEDS: Sertraline* 100 MG TAB PO SCH (09:43)
[2018-12-25] MEDS: Metoprolol Tartrate TAB* 50 mg PO SCH ×2 (09:43→21:21)
[2018-12-25] MEDS: Atorvastatin* 80 MG TAB PO SCH (09:43)
[2018-12-25] MEDS: Cyanocobalamin TAB* 500 MCG PO SCH (09:43)
[2018-12-25] MEDS: Prenatal Vitamin TAB PO SCH (09:45)
[2018-12-25] MEDS: Lisinopril TAB* 10 MG PO SCH (09:45)
[2018-12-25] MEDS: amLODIPine TAB* 5 MG PO SCH (09:46)
[2018-12-25] MEDS: Torsemide TAB 10 MG PO SCH (09:46)
[2018-12-25] MEDS: Vitamin B Complex TAB PO SCH (09:46)
--- NOTE | 2018-12-25 11:01 | PN ---
Subjective Date of Service: 12/25/18 Interval History: Pt is feeling ok currently. I was told the patient was off O2 this AM but when I saw the patient he had an oxymask on. He tells me he has had the oxygen on since yesterday. He worked with PT this AM and walked a short distance. He denies any pain. He does feel as if he has socks on his feet all the time. Family History: Unchanged from Admission Social History: Unchanged from Admission Past Medical History: Unchanged from Admission Objective Active Medications: Amlodipine Besylate (Norvasc Tab*) 10 mg PO QAM [facility] Last Admin: 12/25/18 09:46 Dose: 10 mg Aripiprazole (Abilify Tab*) 5 mg PO BEDTIME [facility] Last Admin: 12/24/18 22:02 Dose: 5 mg Aspirin (Aspirin Ec Tab*) 81 mg PO QPM [facility] Last Admin: 12/24/18 16:48 Dose: 81 mg Atorvastatin Calcium (Lipitor*) [facility] [place] Last Admin: 12/25/18 09:43 Dose: 80 mg Azelastine HCl (Astepro 0.15% Nasal (Nf)) 2 spray BOTH NARES BID PRN PRN Reason: Allergy Symptoms Cyanocobalamin (Vitamin B12 Tab*) 1,000 mcg PO QAM [facility] Last Admin: 12/25/18 09:43 Dose: 1,000 mcg Dicyclomine HCl (Bentyl Cap*) 10 mg PO QID PRN PRN Reason: PAIN Heparin Sodium (Porcine) (Heparin Vial(*)) 5,000 units SUBCUT Q8HR [facility] Last Admin: 12/25/18 06:04 Dose: 5,000 units Levothyroxine Sodium (Synthroid Tab*) 25 mcg PO 0600 [facility] Last Admin: 12/25/18 06:04 Dose: 25 mcg Lisinopril (Prinivil Tab*) 20 mg PO DAILY [facility] Last Admin: 12/25/18 09:45 Dose: 20 mg Lorazepam (Ativan Tab(*)) 0.5 mg PO Q8H PRN PRN Reason: ANXIETY Metformin HCl (Glucophage*) 500 mg PO BID [facility] Last Admin: 12/25/18 09:43 Dose: 500 mg Metoprolol Tartrate (Lopressor Tab*) 50 mg PO BID [facility] Last Admin: 12/25/18 09:43 Dose: 50 mg Multivitamins ( Vitamin Tab*) 1 tab PO QAM [facility] Last Admin: 12/25/18 09:45 Dose: 1 tab Ondansetron HCl (Zofran Inj*) 4 mg IV Q4H PRN PRN Reason: NAUSEA/VOMITING Oxycodone/Acetaminophen (Percocet 5/325 Tab*) 1 tab PO Q4H PRN PRN Reason: SEVERE PAIN Last Admin: 12/24/18 22:03 Dose: 1 tab Sertraline HCl (Zoloft*) 200 mg PO DAILY [facility] Last Admin: 12/25/18 09:43 Dose: 200 mg Torsemide (Torsemide) 20 mg PO DAILY [facility] Last Admin: 12/25/18 09:46 Dose: 20 mg Tramadol HCl (Ultram*) 50 mg PO Q6H PRN PRN Reason: PAIN Trazodone HCl (Desyrel Tab*) 50 mg PO BEDTIME [facility] Last Admin: 12/24/18 22:01 Dose: 50 mg Vitamin B Complex/Vitamin E (B Complex-50*) 1 tab PO QAM [facility] Last Admin: 12/25/18 09:46 Dose: 1 tab Vital Signs - 8 hr 12/25/18 04:13 Temperature 97.2 F Pulse Rate 57 Respiratory 16 Rate Blood Pressure 121/58 (mmHg) O2 Sat by Pulse 99 Oximetry Oxygen Devices in Use Now: OxyMask Appearance: Elderly male sitting up in a chair, NAD Eyes: No Scleral Icterus Ears/Nose/Mouth/Throat: Mucous Membranes Moist Respiratory: Symmetrical Chest Expansion and Respiratory Effort, Clear to Auscultation - diminished throughout, clear Cardiovascular: NL Sounds; No Murmurs; No JVD, RRR, - - 1+ edema Abdominal: NL Sounds; No Tenderness; No Distention Extremities: No Clubbing, Cyanosis Skin: No Nodules or Sclerosis Neurological: - - alert, I question if he may be confused as he could not tell me he was off O2 this AM Result Diagrams: 12/23/18 12:08 12/23/18 12:08 Assess/Plan/Problems-Billing Mr. Saba is a 78 yo M with PMH of DM2, HTN, MARIA DEL CARMEN, HLD, CKD, and chronic pain; who presented to the ED with c/o low back pain and inability to ambulate and care for himself at home. - Patient Problems (1) Acute respiratory failure with hypoxia Current Visit: Yes Status: Acute Code(s): J96.01 - ACUTE RESPIRATORY FAILURE WITH HYPOXIA SNOMED Code(s): 94855803 Comment: Pt was off O2 this AM but now back on for unclear reasons. The hypoxia is likely secondary to atelectasis and obesity hypoventilation syndrome. Continue incentive spirometer. Will take off O2 and check saturations at rest and with ambulation. (2) Diabetes mellitus, type 2 Current Visit: Yes Status: Acute Comment: Add HbA1c to labs drawn earlier this admission. Continue metformin for now. (3) Hypertension Current Visit: Yes Status: Acute Code(s): I10 - ESSENTIAL (PRIMARY) HYPERTENSION SNOMED Code(s): 33714757 Comment: BP is under good control. Continue amlodipine, lisinopril, metoprolol. (4) CKD (chronic kidney disease) stage 3, GFR 30-59 ml/min Current Visit: Yes Status: Acute Code(s): N18.3 - CHRONIC KIDNEY DISEASE, STAGE 3 (MODERATE) SNOMED Code(s): 450752498 Comment: Creatinine is at baseline. (5) Hypothyroidism Current Visit: Yes Status: Acute Code(s): E03.9 - HYPOTHYROIDISM, UNSPECIFIED SNOMED Code(s): 25443195 Comment: Continue current dose of levothyroxine. Last TSH in our system was 2010; will repeat TSH. (6) Hyperlipidemia Current Visit: Yes Status: Acute Code(s): E78.5 - HYPERLIPIDEMIA, UNSPECIFIED SNOMED Code(s): 38311908 Comment: Continue atorvastatin (7) Low back pain Current Visit: Yes Status: Acute Code(s): M54.5 - LOW BACK PAIN SNOMED Code(s): 204136724 Comment: Chronic, pt did better with PT today. Continue prn tramadol. (8) MARIA DEL CARMEN (obstructive sleep apnea) Current Visit: Yes Status: Acute Code(s): G47.33 - OBSTRUCTIVE SLEEP APNEA ( ADULT) (PEDIATRIC) SNOMED Code(s): 04959793 Comment: CPAP (9) DVT prophylaxis Current Visit: Yes Status: Acute Code(s): Z29.9 - ENCOUNTER FOR PROPHYLACTIC MEASURES, UNSPECIFIED SNOMED Code(s): 744631647 Comment: Heparin SQ (10) Full code status Current Visit: Yes Status: Acute Code(s): Z78.9 - OTHER SPECIFIED HEALTH STATUS SNOMED Code(s): 609428016 Comment: Status and Disposition: At this time it does not appear the patient needs to remain in the hospital. The patient is not seeming to be motivated but may also be slightly confused. Case management will be calling the patient's to get more information.
[2018-12-25] MEDS ORDERED: Perflutren Lipid Microsphere* 3 ML VIAL ONE (16:45)
[2018-12-25] MEDS: Aspirin EC TAB* 81 MG TAB.EC PO SCH (17:50)
--- NOTE | 2018-12-25 21:10 | ECHO ---
*[facility]* [place] [address] Fax #: [phone] Transthoracic Echocardiogram Patient: Jayant, Height: 68 in / Delbert Valdivia 172.7 cm : 1940 Weight: 309.4 lb / Study Date: 12/25/2018 140.6 kg Age: 78 BP: 96 / 42 Gender: M BMI/BSA: 47.1 kg/m^2 HR: 79 bpm / 2.46 m^2 *Physical Plant Manager: * Rita Montiel [facility] *Referring Physician: * Cher PalmerReading Physician: * Td Neff MD Indications: Edema. History: Functional status: Renal failure; Following treatment plan for sleep apnea. Risk factors: Hypertension. Diabetes mellitus. Morbidly obese. Hyperlipidemia. Conclusions Summary: 1. Left ventricle: The cavity size is normal. There is mild concentric hypertrophy. Systolic function is normal by visual assessment. The estimated ejection fraction is 60-65%. Wall motion is normal; there are no regional wall motion abnormalities. 2. Right ventricle: The cavity size is normal. Systolic function is normal. Normal estimated pulmonary artery systolic pressure 3. Left atrium: The atrium is mildly to moderately dilated. 4. Ascending aorta: The ascending aorta is mildly dilated. 5. No significant valvular abnormalities noted. Recommendations: None prior comparison at time of interpretation Study data: Transthoracic echocardiogram. Procedure: Transthoracic echocardiography was performed. Image quality was suboptimal. The study was technically limited due to body habitus. Intravenous Definity , 3 mlswas administered. Complete 2D, spectral Doppler, and color flow Doppler. Location: Bedside. Patient status: Inpatient. Patient room number: 450-2. Rhythm: Normal sinus rhythm. Findings Left ventricle: The cavity size is normal. There is mild concentric hypertrophy. Systolic function is normal by visual assessment. The estimated ejection fraction is 60-65%. Wall motion is normal; there are no regional wall motion abnormalities. There is no consistent Doppler evidence of clinically significant diastolic dysfunction. Right ventricle: The cavity size is normal. Systolic function is normal. Normal estimated pulmonary artery systolic pressure Left atrium: The atrium is mildly to moderately dilated. Right atrium: The atrium is mildly dilated. Mitral valve: The annulus is mildly calcified. The leaflets are mildly thickened. There is no evidence of stenosis. There is trace regurgitation. Aortic valve: The valve is trileaflet. Mild thickening and calcification. , mild to moderate calcification. Thickening, consistent with sclerosis. There is no evidence of stenosis. There is trace regurgitation. Tricuspid valve: The leaflets are normal thickness. There is no evidence of stenosis. There is trace to mild regurgitation. Pulmonic valve: The leaflets are normal thickness. There is no evidence of stenosis. There is trace regurgitation. Aorta: Ascending aorta: The ascending aorta is mildly dilated. Aortic arch: The aortic arch is appears normal. The aortic root is not dilated. Pericardium: A prominent pericardial fat pad is present. There is no significant pericardial effusion. Pulmonary arteries: Not well visualized. Systemic veins: Inferior vena cava: The vessel is dilated. The respirophasic diameter changes are blunted (< 50%). Measurements Left ventricle Value Ref Aortic valve Value Ref ZAYRA, LAX 4.4 cm 4.2 - 5.8 Christian diam, ED 2.0 cm ----- ESD, LAX 2.5 cm 2.5 - 4.0 Peak v, S 1.47 m/sec ----- FS, LAX 43 % 25 - 43 VTI, S 35.9 cm ----- PW, ED, LAX (H) 1.3 cm 0.6 - 1.0 Mean grad, S 4.0 mm Hg ----- FS 43 % 25 - 43 Peak grad, S 9.0 mm Hg ----- PW, ED (H) 1.3 cm 0.6 - 1.0 LVOT/AV, VTI ratio 0.64 ----- E', lat christian, TDI (L) 8.1 cm/sec >=10.0 ANTOINE, VTI 2.01 cm^2 --- -- E/e', lat christian, 14 ANTOINE, Vmax 1.91 cm^2 ----- TDI E', med christian, TDI (L) 6.7 cm/sec >=7.0 Mitral valve Value Ref E/e', med christian, 17 Peak E 1.11 m/sec ----- TDI Peak A 0.79 m/sec ----- E', avg, TDI 7.4 cm/sec Decel time 190 ms ----- E/e', avg, TDI (H) 15 <=14 Peak grad, D 4.9 mm Hg --- -- Peak E/A ratio 1.4 ----- LVOT Value Ref Diam, S 2.00 cm Pulmonic valve Value Ref Area 3.1 cm^2 Peak v, S 0.89 m/sec ----- Peak ade, S 0.89 m/sec Peak grad, S 3.0 mm Hg ----- VTI, S 23.0 cm Mean grad, S 2 mm Hg Tricuspid valve Value Ref SV 72 ml TR peak v 2.2 m/sec <=2.8 SV/bsa 29 ml/m^2 Peak RV-RA grad, S 19 mm Hg ----- Ventricular septum Value Ref Aortic root Value Ref IVS, ED (H) 1.3 cm 0.6 - 1.0 Root diam 3.5 cm <4.5 Right ventricle Value Ref Ascending aorta Value Ref ZAYRA, LAX 4.0 cm AAo AP diam, S 3.9 cm ----- ZAYRA minor ax, A4C (H) 5.1 cm 1.9 - 3.5 mid Aortic arch Value Ref Pressure, S 34 mm Hg Arch diam 2.1 cm ----- Left atrium Value Ref Decending aorta Value Ref AP dim, ES (H) 4.70 cm 3.00 - Radha peak ade 0.84 m/sec ----- 4.00 ML dim, A4C 5.1 cm Pulmonary artery Value Ref SI dim, A4C 6.2 cm Pressure, S 31.0 mm Hg ----- Vol/bsa, ES, 1-p (H) 50 ml/m^2 12 - 37 A4C Inferior vena cava Value Ref Vol/bsa, ES, A/L (H) 46 ml/m^2 16 - 34 Diam 2.5 cm ----- Right atrium Value Ref SI dim, ES 5.2 cm 3.4 - 5.3 ML dim, ES, A4C (H) 4.7 cm 2.6 - 4.4 SI dim, ES, A4C 5.2 cm 3.4 - 5.3 Estimated RAP 15 mm Hg Legend: (L) and (H) ted values outside specified reference range. Prepared and electronically signed by Td Neff MD 12/25/2018 21:09
[2018-12-25] MEDS: traZODone TAB* 50 MG TAB PO SCH (21:21)
[2018-12-25] MEDS: ARIPiprazole TAB* 5 MG PO SCH (21:21)
[2018-12-26] MEDS: oxyCODONE/Acetamin 5/325 MG* TAB PO PRN (02:32)
[2018-12-26] MEDS: Heparin VIAL(*) 5000 UNITS/ML VIAL (FIVE THOUSAND) SUBCUT SCH ×3 (05:39→21:17)
[2018-12-26] MEDS: Levothyroxine TAB* 25 MCG TAB PO SCH (05:39)
[2018-12-26] MEDS: Vitamin B Complex TAB PO SCH (09:15)
[2018-12-26] MEDS: Prenatal Vitamin TAB PO SCH (09:15)
[2018-12-26] MEDS: Lisinopril TAB* 10 MG PO SCH (09:16)
[2018-12-26] MEDS: Sertraline* 100 MG TAB PO SCH (09:16)
[2018-12-26] MEDS: Torsemide TAB 10 MG PO SCH (09:17)
[2018-12-26] MEDS: Metoprolol Tartrate TAB* 50 mg PO SCH ×2 (09:17→21:15)
[2018-12-26] MEDS: amLODIPine TAB* 5 MG PO SCH (09:17)
[2018-12-26] MEDS: Atorvastatin* 80 MG TAB PO SCH (09:17)
[2018-12-26] MEDS: metFORMIN* 1,000 MG TAB PO SCH ×2 (09:18→21:15)
[2018-12-26] MEDS: Cyanocobalamin TAB* 500 MCG PO SCH (09:18)
--- NOTE | 2018-12-26 17:06 | PN ---
Subjective Date of Service: 12/26/18 Interval History: Pt is feeling ok currently. He is resting in bed on CPAP. He denies any SOB. He had a much harder time walking today compared to yesterday. He states it is partly related to pain in his feet. He does not have any focal weakness. Family History: Unchanged from Admission Social History: Unchanged from Admission Past Medical History: Unchanged from Admission Objective Active Medications: [facility]odip[facility] ([facility]asc Tab*) [facility] [place] Last Admin: 12/26/18 09:17 Dose: 10 mg Aripiprazole (Abilify Tab*) 5 mg PO BEDTIME [facility] Last Admin: 12/25/18 21:21 Dose: 5 mg Aspirin (Aspirin Ec Tab*) 81 mg PO QPM [facility] Last Admin: 12/25/18 17:50 Dose: 81 mg Atorvastatin Calcium (Lipitor*) [facility] [place] Last Admin: 12/26/18 09:17 Dose: 80 mg Azelastine HCl (Astepro 0.15% Nasal (Nf)) 2 spray BOTH NARES BID PRN PRN Reason: Allergy Symptoms Cyanocobalamin (Vitamin B12 Tab*) 1,000 [facility] [place] Last Admin: 12/26/18 09:18 Dose: 1,000 mcg Dicyclomine HCl (Bentyl Cap*) 10 mg PO QID PRN PRN Reason: PAIN Heparin Sodium (Porcine) (Heparin Vial(*)) 5,000 units SUBCUT Q8HR [facility] Last Admin: 12/26/18 15:46 Dose: 5,000 units Levothyroxine Sodium (Synthroid Tab*) 25 mcg PO 0600 [facility] Last Admin: 12/26/18 05:39 Dose: 25 mcg Lisinopril (Prinivil Tab*) 20 mg PO DAILY [facility] Last Admin: 12/26/18 09:16 Dose: 20 mg Lorazepam (Ativan Tab(*)) 0.5 mg PO Q8H PRN PRN Reason: ANXIETY Metformin HCl (Glucophage*) 500 mg PO BID [facility] Last Admin: 12/26/18 09:18 Dose: 500 mg Metoprolol Tartrate (Lopressor Tab*) 50 mg PO BID [facility] Last Admin: 12/26/18 09:17 Dose: 50 mg Multivitamins ( Vitamin Tab*) [facility] [place] Last Admin: 12/26/18 09:15 Dose: 1 tab Ondansetron HCl (Zofran Inj*) 4 mg IV Q4H PRN PRN Reason: NAUSEA/VOMITING Oxycodone/Acetaminophen (Percocet 5/325 Tab*) 1 tab PO Q4H PRN PRN Reason: SEVERE PAIN Last Admin: 12/26/18 02:32 Dose: 1 tab Pregabalin (Lyrica Cap(*)) 25 mg PO BID [facility] Sertraline HCl (Zoloft*) 200 mg PO DAILY [facility] Last Admin: 12/26/18 09:16 Dose: 200 mg Torsemide (Torsemide) 20 mg PO DAILY [facility] Last Admin: 12/26/18 09:17 Dose: 20 mg Tramadol HCl (Ultram*) 50 mg PO Q6H PRN PRN Reason: PAIN Trazodone HCl (Desyrel Tab*) 50 mg PO BEDTIME [facility] Last Admin: 12/25/18 21:21 Dose: 50 mg Vitamin B Complex/Vitamin E (B Complex-50*) 1 tab PO QAM [facility] Last Admin: 12/26/18 09:15 Dose: 1 tab Oxygen Devices in Use Now: Nasal Cannula Appearance: Elderly male lying in bed, with CPAP on, NAD Eyes: No Scleral Icterus Ears/Nose/Mouth/Throat: Mucous Membranes Moist Respiratory: Symmetrical Chest Expansion and Respiratory Effort, Clear to Auscultation - diminished breath sounds throughout but pt also holds his breath when I sit him up Cardiovascular: NL Sounds; No Murmurs; No JVD, RRR, - - 1+ LE edema Abdominal: NL Sounds; No Tenderness; No Distention Extremities: No Clubbing, Cyanosis Skin: No Nodules or Sclerosis Neurological: Alert and Oriented x 3 Result Diagrams: 12/23/18 12:08 12/23/18 12:08 Assess/Plan/Problems-Billing Mr. Saba is a 78 yo M with PMH of DM2, HTN, MARIA DEL CARMEN, HLD, CKD, and chronic pain; who presented to the ED with c/o low back pain and inability to ambulate and care for himself at home. - Patient Problems (1) Weakness Current Visit: Yes Status: Acute Code(s): R53.1 - WEAKNESS SNOMED Code(s) : 80566868 Comment: Unclear cause but pt is having a very difficult time ambulating. Will add lyrica 25mg BID to see if that helps the pain in his feet that may be impacting his ability to ambulate. Will also obtain CT brain to ensure there is no evidence of CVA (seems very unlikely as pt with a non-focal exam with normal strength). (2) Acute respiratory failure with hypoxia Current Visit: Yes Status: Acute Code(s): J96.01 - ACUTE RESPIRATORY FAILURE WITH HYPOXIA SNOMED Code(s): 41390495 Comment: Pt is again needing 3L supplemental O2. No clear cause. Echo negative for evidence of systolic or diastolic CHF. He likely hypoventilates. Continue CPAP with sleep. O2 at rest. He is needing MELYSSA so will watch over the weekend while awaiting a bed offer. (3) Diabetes mellitus, type 2 Current Visit: Yes Status: Acute Comment: A1c is in good range. Continue metformin. (4) Hypertension Current Visit: Yes Status: Acute Code(s): I10 - ESSENTIAL (PRIMARY) HYPERTENSION SNOMED Code(s): 90586588 Comment: BP is under good control. Continue amlodipine, lisinopril, metoprolol. (5) CKD (chronic kidney disease) stage 3, GFR 30-59 ml/min Current Visit: Yes Status: Acute Code(s): N18.3 - CHRONIC KIDNEY DISEASE, STAGE 3 (MODERATE) SNOMED Code(s): 552774548 Comment: Creatinine is at baseline. (6) Hypothyroidism Current Visit: Yes Status: Acute Code(s): E03.9 - HYPOTHYROIDISM, UNSPECIFIED SNOMED Code(s): 22383637 Comment: Continue current dose of levothyroxine, TSH in good range. (7) Hyperlipidemia Current Visit: Yes Status: Acute Code(s): E78.5 - HYPERLIPIDEMIA, UNSPECIFIED SNOMED Code(s): 55319462 Comment: Continue atorvastatin (8) Low back pain Current Visit: Yes Status: Acute Code(s): M54.5 - LOW BACK PAIN SNOMED Code(s): 988195108 Comment: Continue prn tramadol. (9) MARIA DEL CARMEN (obstructive sleep apnea) Current Visit: Yes Status: Acute Code(s): G47.33 - OBSTRUCTIVE SLEEP APNEA ( ADULT) (PEDIATRIC) SNOMED Code(s): 63879211 Comment: CPAP (10) DVT prophylaxis Current Visit: Yes Status: Acute Code(s): Z29.9 - ENCOUNTER FOR PROPHYLACTIC MEASURES, UNSPECIFIED SNOMED Code(s): 001007043 Comment: Heparin SQ (11) Full code status Current Visit: Yes Status: Acute Code(s): Z78.9 - OTHER SPECIFIED HEALTH STATUS SNOMED Code(s): 878662088 Comment: Status and Disposition: At this time it does not appear the patient needs to remain in the hospital. The patient is not seeming to be motivated but may also be slightly confused. Case management will be calling the patient's to get more information.
[2018-12-26] MEDS: Aspirin EC TAB* 81 MG TAB.EC PO SCH (17:39)
[2018-12-26] MEDS: traZODone TAB* 50 MG TAB PO SCH (21:16)
[2018-12-26] MEDS: Pregabalin CAP(*) 25 MG PO SCH (21:16)
[2018-12-26] MEDS: ARIPiprazole TAB* 5 MG PO SCH (21:16)
[2018-12-26] MEDS: Amoxicillin/Clavulanate TAB* 500 MG PO SCH (21:17)
[2018-12-27] MEDS: Heparin VIAL(*) 5000 UNITS/ML VIAL (FIVE THOUSAND) SUBCUT SCH ×3 (05:31→21:05)
[2018-12-27] MEDS: Levothyroxine TAB* 25 MCG TAB PO SCH (05:31)
[2018-12-27] MEDS: metFORMIN* 1,000 MG TAB PO SCH ×2 (09:24→21:00)
[2018-12-27] MEDS: Prenatal Vitamin TAB PO SCH (09:27)
[2018-12-27] MEDS: Metoprolol Tartrate TAB* 50 mg PO SCH ×2 (09:27→21:00)
[2018-12-27] MEDS: Vitamin B Complex TAB PO SCH (09:27)
[2018-12-27] MEDS: Torsemide TAB 10 MG PO SCH (09:27)
[2018-12-27] MEDS: Pregabalin CAP(*) 25 MG PO SCH (09:28)
[2018-12-27] MEDS: Amoxicillin/Clavulanate TAB* 500 MG PO SCH (09:28)
[2018-12-27] MEDS: Atorvastatin* 80 MG TAB PO SCH (09:28)
[2018-12-27] MEDS: amLODIPine TAB* 5 MG PO SCH (09:29)
[2018-12-27] MEDS: Sertraline* 100 MG TAB PO SCH (09:29)
[2018-12-27] MEDS: Lisinopril TAB* 10 MG PO SCH (09:30)
[2018-12-27] MEDS: Cyanocobalamin TAB* 500 MCG PO SCH (09:30)
--- NOTE | 2018-12-27 15:12 | PN ---
Subjective Date of Service: 12/27/18 Interval History: Pain sl better today but still markedly impaired ambulation. Family History: Unchanged from Admission Social History: Unchanged from Admission Past Medical History: Unchanged from Admission Objective Active Medications: Amlodipine Besylate (Norvasc Tab*) 10 mg PO QAM [facility] Last Admin: 12/27/18 09:29 Dose: 10 mg Amoxicillin/Clavulanate Potassium (Augmentin Tab*) 500 mg PO BID [facility] Last Admin: 12/27/18 09:28 Dose: 500 mg Aripiprazole (Abilify Tab*) 5 mg PO BEDTIME [facility] Last Admin: 12/26/18 21:16 Dose: 5 mg Aspirin (Aspirin Ec Tab*) 81 mg PO QPM [facility] Last Admin: 12/26/18 17:39 Dose: 81 mg Atorvastatin Calcium (Lipitor*) 80 mg PO QAM [facility] Last Admin: 12/27/18 09:28 Dose: 80 mg Azelastine HCl (Astepro 0.15% Nasal (Nf)) 2 spray BOTH NARES BID PRN PRN Reason: Allergy Symptoms Cyanocobalamin (Vitamin B12 Tab*) [facility] [place] Last Admin: 12/27/18 09:30 Dose: 1,000 mcg Dicyclomine HCl (Bentyl Cap*) 10 mg PO QID PRN PRN Reason: PAIN Heparin Sodium (Porcine) (Heparin Vial(*)) 5,000 units SUBCUT Q8HR [facility] Last Admin: 12/27/18 05:31 Dose: 5,000 units Levothyroxine Sodium (Synthroid Tab*) 25 mcg PO 0600 [facility] Last Admin: 12/27/18 05:31 Dose: 25 mcg Lisinopril (Prinivil Tab*) 20 mg PO DAILY [facility] Last Admin: 12/27/18 09:30 Dose: 20 mg Lorazepam (Ativan Tab(*)) 0.5 mg PO Q8H PRN PRN Reason: ANXIETY Metformin HCl (Glucophage*) 500 mg PO BID [facility] Last Admin: 12/27/18 09:24 Dose: 500 mg Metoprolol Tartrate (Lopressor Tab*) 50 mg PO BID [facility] Last Admin: 12/27/18 09:27 Dose: 50 mg Multivitamins ( Vitamin Tab*) [facility] [place] Last Admin: 12/27/18 09:27 Dose: 1 tab Ondansetron HCl (Zofran Inj*) 4 mg IV Q4H PRN PRN Reason: NAUSEA/VOMITING Last Admin: 12/27/18 00:16 Dose: 4 mg Oxycodone/Acetaminophen (Percocet 5/325 Tab*) 1 tab PO Q4H PRN PRN Reason: SEVERE PAIN Last Admin: 12/26/18 02:32 Dose: 1 tab Pregabalin (Lyrica Cap(*)) 25 mg PO BID [facility] Last Admin: 12/27/18 09:28 Dose: 25 mg Sertraline HCl (Zoloft*) 200 mg PO DAILY [facility] Last Admin: 12/27/18 09:29 Dose: 200 mg Torsemide (Torsemide) 20 mg PO DAILY [facility] Last Admin: 12/27/18 09:27 Dose: 20 mg Tramadol HCl (Ultram*) 50 mg PO Q6H PRN PRN Reason: PAIN Vitamin B Complex/Vitamin E (B Complex-50*) 1 tab PO QAM [facility] Last Admin: 12/27/18 09:27 Dose: 1 tab Vital Signs - 8 hr 12/27/18 12/27/18 12/27/18 07:33 07:40 09:28 Temperature 97.8 F Pulse Rate 80 Respiratory 16 18 18 Rate Blood Pressure 134/55 (mmHg) O2 Sat by Pulse 96 Oximetry 12/27/18 12/27/18 11:19 13:35 Temperature 97.6 F Pulse Rate 68 Respiratory 20 18 Rate Blood Pressure 106/40 (mmHg) O2 Sat by Pulse 98 Oximetry Oxygen Devices in Use Now: None, CPAP Appearance: Sleeping in chair but arouses easily and fully. In good spirits. Looks comfortable. Eyes: No Scleral Icterus Respiratory: Symmetrical Chest Expansion and Respiratory Effort, Clear to Auscultation, Clear to Percussion Cardiovascular: NL Sounds; No Murmurs; No JVD, RRR, No Edema, - Extremities: No Clubbing, Cyanosis, - - Tr edema BL. Skin: No Rash or Ulcers, No Nodules or Sclerosis Neurological: Alert and Oriented x 3, NL Sensation, - - Can lift both feet. Result Diagrams: 12/23/18 12:08 12/23/18 12:08 Assess/Plan/Problems-Billing Mr. Saba is a 78 yo M with PMH of DM2, HTN, MARIA DEL CARMEN, HLD, CKD, and chronic pain; who presented to the ED with c/o low back pain and inability to ambulate and care for himself at home. - Patient Problems (1) Gait disorder Current Visit: Yes Status: Acute Code(s): R26.9 - UNSPECIFIED ABNORMALITIES OF GAIT AND MOBILITY SNOMED Code(s): 59173414 Comment: Unable to bear weight due to foot pain. Also low back pain about a year. ? some benefit from pregabalin, will increase dose 6/8 PM. consulted. MRI lumbar spine w/o ordered. (2) Diabetes mellitus, type 2 Current Visit: Yes Status: Acute Comment: A1C 6.8% on 12/25/18. Continue metformin. (3) Hypertension Current Visit: Yes Status: Acute Code(s): I10 - ESSENTIAL (PRIMARY) HYPERTENSION SNOMED Code(s): 56130533 Comment: BP is under good control. Continue amlodipine, lisinopril, metoprolol. (4) Hypothyroidism Current Visit: Yes Status: Acute Code(s): E03.9 - HYPOTHYROIDISM, UNSPECIFIED SNOMED Code(s): 48019936 Comment: Continue current dose of levothyroxine, TSH 3.91 on 12/25/18. (5) Excessive daytime sleepiness Current Visit: Yes Status: Acute Code(s): G47.19 - OTHER HYPERSOMNIA SNOMED Code(s): 514522227073 Comment: D/C trazadone, last dose 6/7 PM, reduce sertraline to 150 mg daily start 12/28. Status and Disposition: At this time it does not appear the patient needs to remain in the hospital. The patient is not seeming to be motivated but may also be slightly confused. Case management will be calling the patient's to get more information.
[2018-12-27] MEDS: Aspirin EC TAB* 81 MG TAB.EC PO SCH (17:20)
[2018-12-27] MEDS: ARIPiprazole TAB* 5 MG PO SCH (20:59)
[2018-12-27] MEDS: Pregabalin CAP(*) 50 MG PO SCH (21:01)
[2018-12-28] MEDS: Heparin VIAL(*) 5000 UNITS/ML VIAL (FIVE THOUSAND) SUBCUT SCH ×3 (06:50→21:39)
[2018-12-28] MEDS: Levothyroxine TAB* 25 MCG TAB PO SCH (06:51)
[2018-12-28] MEDS: amLODIPine TAB* 5 MG PO SCH (08:00)
[2018-12-28] MEDS: Metoprolol Tartrate TAB* 50 mg PO SCH ×2 (08:00→21:38)
[2018-12-28] MEDS: Lisinopril TAB* 10 MG PO SCH (08:00)
[2018-12-28] MEDS: Pregabalin CAP(*) 50 MG PO SCH ×2 (08:00→21:37)
[2018-12-28] MEDS: Vitamin B Complex TAB PO SCH (08:00)
[2018-12-28] MEDS: Torsemide TAB 10 MG PO SCH (08:00)
[2018-12-28] MEDS: Cyanocobalamin TAB* 500 MCG PO SCH (08:00)
[2018-12-28] MEDS: Prenatal Vitamin TAB PO SCH (08:00)
[2018-12-28] MEDS: Sertraline* 100 MG TAB PO SCH (08:00)
[2018-12-28] MEDS: metFORMIN* 1,000 MG TAB PO SCH ×2 (08:00→21:38)
[2018-12-28] MEDS: Atorvastatin* 80 MG TAB PO SCH (08:00)
[2018-12-28] MEDS: Loperamide CAP* 2 MG PO PRN ×2 (10:53→17:12)
[2018-12-28 13:38] LABS: ABS Basophils 0.1 10^3/ul (0-0.2); ABS Eosinophils 0.3 10^3/ul (0-0.6); ABS Lymphocytes 0.8 10^3/ul (1.0-4.8); ABS Monocytes 0.7 10^3/ul (0-0.8); ABS Neutrophils 7.3 10^3/ul (1.5-7.7); Eosinophil % 2.8 %; Hematocrit 36 % (42-52); Hemoglobin 12.1 g/dL (14.0-18.0); Lymphocyte % 8.6 %; Mean Corpuscular HGB Conc 33 g/dL (31-36); Mean Corpuscular Hemoglobin 31 pg (27-31); Mean Corpuscular Volume 93 fL (80-94); Mean Platelet Volume 7.1 fL (7.4-10.4); Platelet Count 288 10^3/uL (150-450); Red Cell Distribution Width 14 % (10-15)
[2018-12-28 13:52] LABS: C Reactive Protein 117.21 mg/L (<8.01); Uric Acid 11.8 mg/dL (4.4-7.6)
[2018-12-28 13:53] LABS: Albumin 3.8 g/dL (3.2-5.2); Albumin/Globulin Ratio 1.1 (1-3); BUN/Creatinine Ratio 29.1 (8-20); Calcium 9.6 mg/dL (8.6-10.3); EGFR African American 45.7 (>60); EGFR Non-African American 37.8 (>60); Globulin 3.5 g/dL (2-4); Potassium 4.4 mmol/L (3.5-5.0); Total Bilirubin 0.4 mg/dL (0.2-1.0); Total Protein 7.3 g/dL (6.4-8.9)
--- NOTE | 2018-12-28 14:03 | PN ---
Subjective Date of Service: 12/28/18 Interval History: Pain in feet about the same. R is worse than L. Slept OK without trazadone. ? less sleepy today. Pt and state he sees only Dr. Emerson, sees no mental health profssionals. Family History: Unchanged from Admission Social History: Unchanged from Admission Past Medical History: Unchanged from Admission Objective Active Medications: Allopurinol (Zyloprim Tab*) 100 mg PO DAILY [facility] Amlodipine Besylate (Norvasc Tab*) 10 mg PO QAM [facility] Last Admin: 12/28/18 08:00 Dose: 10 mg Aripiprazole (Abilify Tab*) 5 mg PO BEDTIME [facility] Last Admin: 12/27/18 20:59 Dose: 5 mg Aspirin (Aspirin Ec Tab*) 81 mg PO QPM [facility] Last Admin: 12/27/18 17:20 Dose: 81 mg Atorvastatin Calcium (Lipitor*) 80 mg PO QAM [facility] Last Admin: 12/28/18 08:00 Dose: 80 mg Azelastine HCl (Astepro 0.15% Nasal (Nf)) 2 spray BOTH NARES BID PRN PRN Reason: Allergy Symptoms Cyanocobalamin (Vitamin B12 Tab*) 1,000 mcg PO QAM [facility] Last Admin: 12/28/18 08:00 Dose: 1,000 mcg Dicyclomine HCl (Bentyl Cap*) 10 mg PO QID PRN PRN Reason: PAIN Heparin Sodium (Porcine) (Heparin Vial(*)) 5,000 units SUBCUT Q8HR [facility] Last Admin: 12/28/18 13:51 Dose: 5,000 units Ibuprofen (Motrin Tab*) 800 mg PO TID [facility] Levothyroxine Sodium (Synthroid Tab*) 25 mcg PO 0600 [facility] Last Admin: 12/28/18 06:51 Dose: 25 mcg Lisinopril (Prinivil Tab*) 20 mg PO DAILY [facility] Last Admin: 12/28/18 08:00 Dose: 20 mg Loperamide HCl (Imodium Cap*) 2 mg PO QID PRN PRN Reason: DIARRHEA Last Admin: 12/28/18 10:53 Dose: 2 mg Lorazepam (Ativan Tab(*)) 0.5 mg PO Q8H PRN PRN Reason: ANXIETY Metformin HCl (Glucophage*) 500 mg PO BID [facility] Last Admin: 12/28/18 08:00 Dose: 500 mg Metoprolol Tartrate (Lopressor Tab*) 50 mg PO BID [facility] Last Admin: 12/28/18 08:00 Dose: 50 mg Multivitamins ( Vitamin Tab*) 1 tab PO QAM [facility] Last Admin: 12/28/18 08:00 Dose: 1 tab Ondansetron HCl (Zofran Inj*) 4 mg IV Q4H PRN PRN Reason: NAUSEA/VOMITING Last Admin: 12/27/18 00:16 Dose: 4 mg Oxycodone/Acetaminophen (Percocet 5/325 Tab*) 1 tab PO Q4H PRN PRN Reason: SEVERE PAIN Last Admin: 12/26/18 02:32 Dose: 1 tab Pregabalin (Lyrica Cap(*)) 50 mg PO BID [facility] Last Admin: 12/28/18 08:00 Dose: 50 mg Sertraline HCl (Zoloft*) 150 mg PO DAILY [facility] Last Admin: 12/28/18 08:00 Dose: 150 mg Torsemide (Torsemide) 20 mg PO DAILY [facility] Last Admin: 12/28/18 08:00 Dose: 20 mg Tramadol HCl (Ultram*) 50 mg PO Q6H PRN PRN Reason: PAIN Vitamin B Complex/Vitamin E (B Complex-50*) 1 tab PO QAM [facility] Last Admin: 12/28/18 08:00 Dose: 1 tab Vital Signs - 8 hr 12/28/18 12/28/18 12/28/18 06:44 07:28 08:00 Temperature 97.2 F Pulse Rate 70 Respiratory 20 20 20 Rate Blood Pressure 105/46 (mmHg) O2 Sat by Pulse 97 Oximetry 12/28/18 12/28/18 12/28/18 10:53 12:14 12:24 Temperature 97.8 F Pulse Rate 80 Respiratory 18 19 19 Rate Blood Pressure 92/54 (mmHg) O2 Sat by Pulse 99 Oximetry Oxygen Devices in Use Now: None, CPAP Appearance: Alert, partly up in bed. In good spirits, looks comfortable. Eyes: No Scleral Icterus Extremities: No Edema, No Clubbing, Cyanosis, - Skin: No Rash or Ulcers, No Nodules or Sclerosis, - Neurological: Alert and Oriented x 3, NL Sensation Result Diagrams: 12/28/18 13:26 12/28/18 13:25 Microbiology and Other Data: Microbiology 12/27/18 23:30 Stool Gross Appearance - Final Stool C. difficile DNA Amplification - Final 027 Presumptive NEGATIVE Toxigenic C.diff NEGATIVE Assess/Plan/Problems-Billing Mr. Saba is a 78 yo M with PMH of DM2, HTN, MARIA DEL CARMEN, HLD, CKD, and chronic pain; who presented to the ED with c/o low back pain and inability to ambulate and care for himself at home. - Patient Problems (1) Gait disorder Current Visit: Yes Status: Acute Code(s): R26.9 - UNSPECIFIED ABNORMALITIES OF GAIT AND MOBILITY SNOMED Code(s): 87787068 Comment: MRI lumbar spine w/o ordered. (2) Diabetes mellitus, type 2 Current Visit: Yes Status: Acute Comment: A1C 6.8% on 12/25/18. Continue metformin. (3) Hypertension Current Visit: Yes Status: Acute Code(s): I10 - ESSENTIAL (PRIMARY) HYPERTENSION SNOMED Code(s): 35757537 Comment: BP is under good control. Continue amlodipine, lisinopril, metoprolol. (4) Hypothyroidism Current Visit: Yes Status: Acute Code(s): E03.9 - HYPOTHYROIDISM, UNSPECIFIED SNOMED Code(s): 30569030 Comment: Continue current dose of levothyroxine, TSH 3.91 on 12/25/18. (5) Excessive daytime sleepiness Current Visit: Yes Status: Acute Code(s): G47.19 - OTHER HYPERSOMNIA SNOMED Code(s): 766382159425 Comment: D/C trazadone, last dose 12/26 PM, reduce sertraline to 150 mg daily start 12/28. (6) Gout Current Visit: Yes Status: Acute Code(s): M10.9 - GOUT, UNSPECIFIED SNOMED Code(s): 25286500 Comment: Uric acid 11.8, X-rays show joint space narrowing and erosive changes R first and second [id number] joints. Start ibuprofen 800 mg tid 2 PM 12/28, start allopurinol 100 mg daily 12/29. Status and Disposition: At this time it does not appear the patient needs to remain in the hospital. The patient is not seeming to be motivated but may also be slightly confused. Case management will be calling the patient's to get more information.
[2018-12-28] MEDS: Ibuprofen TAB* 800 MG PO SCH ×2 (14:38→21:37)
--- NOTE | 2018-12-28 16:15 | CONS ---
CC: Dr. Shauna Emerson CONSULTATION REPORT: DATE OF CONSULT: 12/28/18 HISTORY OF PRESENT ILLNESS: Delbert Saba is a 78-year-old gentleman with history of chronic back pain and foot pain, diabetes type 2, hypertension, hyperlipidemia, who had recent surgery on his left hand, and now was admitted to hospital due to exacerbation of his back and foot pain making him unable to walk. He was admitted to the hospital on 12/23/18. He indicates that he tried to get up and he developed an awful pain in his feet and back. At baseline, he does have chronic back pain, which is across the low back. He has been walking with a walker since he had knee replacements about 5 years ago. He indicates his back pain dates back at least that far. He over the last 5 years has had difficulty standing up straight when waiting in line, and feels better when leaning forward when walking. He uses a walker. He tells me that he recently saw an orthopedist about 6 months ago because of hip discomfort, who felt that his hip discomfort was coming from his back. He believes he has had an MRI of the back in the past. He went on to have injections with Dr. Hamm at [facility] followed by physical therapy for the month of October. He indicates that the back pain he experienced that morning was not the rate limiting factor for coming into the hospital, it was more the foot pain. In the ER, he did have a CT of the back, which showed degenerative disk disease and osteoarthritis with severe narrowing of the central canal at L2-L3, L3-L4, L4-L5 with mild narrowing at L1-L2 along with multilevel neural foraminal narrowing. Please see report for details. In regards to his feet, he also has had chronic foot pain for at least 5 years. He indicates he has worn special shoes for a long time. At one point, he remembers going and getting a walking cast from [facility] for one of his feet. Usually, when he develops foot pain, he is able to rest for several days, switch his shoes and get better. The pain has never been this bad. Accordingly, he was brought into the hospital. He has also had difficulty with diarrhea since admission. He indicates that he knows when he needs to go, but getting nursing staff there to help him is hard because there is little time between the urge and having to go and having diarrhea. He also can feel the urge to go to the bathroom with urination and is able to feel himself have a bowel movement and urinate. He is limited in being able to take care of urinating himself because of his left hand bandage. Accordingly, he often is incontinent because he cannot get help soon enough. His left hand surgery was on 12/16/[address] Nicole Pérez. He was supposed to follow up last week for removal of stitches and bandage change. He was unable to do so because of his medical condition. Of note, he denies any radicular pain into his legs. He does have a baseline feeling as if there is a sock on his feet which is not there. He has had this for at least 5 years. There is no burning or stabbing pain. The pain does not occur if he is just sitting in bed. It is only when he gets on his feet or someone pushes on his feet that he develops the pain. It is not in all areas of his feet, it is over certain areas. PAST MEDICAL HISTORY: Includes chronic back pain as noted above with findings of lumbosacral spinal stenosis on CT scan and history suggesting that lumbosacral spinal stenosis has been part of the clinical picture for a while; history of arthritis; diabetes type 2; hypertension; hyperlipidemia; obstructive sleep apnea, on CPAP; irritable bowel syndrome; history of seeing Dr. Ding for kidney disease; history of cataracts with repair; migraines; depression; anxiety. PAST SURGICAL HISTORY: Includes tonsillectomy and adenoidectomy as a child, bilateral knee replacement approximately 5 years ago, right shoulder replacement x2, bilateral carpal tunnel release, recent surgery of the left fourth finger with Dr. Pérez, bilateral cataract repairs, surgery on the right foot secondary to fracture, foreskin surgery, and surgery on the right hand for infection. CURRENT MEDICATIONS: Include: 1. Norvasc 10 mg p.o. q.a.m. 2. Abilify 5 mg p.o. q.p.m. 3. Aspirin 81 mg p.o. daily. 4. Atorvastatin 80 mg p.o. daily. 5. Astepro 0.15% nasal 2 sprays both nares p.r.n. allergy symptoms. 6. Vitamin B12 1000 mcg p.o. q.a.m. 7. Bentyl 10 mg p.o. q.i.d. p.r.n. pain. 8. Heparin 5000 units q.8 hours subcutaneous. 9. Synthroid 25 mcg p.o. q.a.m. 10. Lisinopril 20 mg p.o. q.a.m. 11. Imodium 2 tablets p.o. q.i.d. p.r.n. diarrhea. 12. Ativan 0.5 mg p.o. q.8 hours p.r.n. anxiety. 13. Glucophage 500 mg p.o. b.i.d. 14. Metoprolol 50 mg p.o. b.i.d. 15. Multivitamin 1 tablet p.o. q.a.m. 16. Zofran 4 mg IV q.4 hours p.r.n. nausea, vomiting. 17. Percocet 1 tablet p.o. q.4 hours p.r.n. severe pain, last administered on 12/21/18 at 2:32. 18. Lyrica 50 mg p.o. b.i.d. 19. Zoloft 150 mg p.o. daily. 20. Torsemide 20 mg p.o. daily. 21. Ultram 50 mg p.o. q.6 hours p.r.n. pain. ALLERGIES: He has no known drug allergies. FAMILY HISTORY: Includes mother and father both had coronary artery disease and father who had hip surgery. His father in his early 60s and mother in early 80s. SOCIAL HISTORY: Mr. Saba stopped smoking 30 years ago. He had smoked for 20 years prior to that time. He drinks approximately 1 glass of alcohol a week or less. He lives with his . REVIEW OF SYSTEMS: Pertinent positive and negative answers have included in past medical history and in HPI; 10 reviewed of systems were performed. Of note , there has been no recent fever. PHYSICAL EXAM: His most recent temperature was 97.8 degrees Fahrenheit, his pulse rate was 80, respiratory rate was 19, saturation was 99% on room air, and blood pressure was 92/54. He had a regular cardiac rhythm. His lungs were clear to auscultation. There were very active bowel sounds. There was 2+ pedal edema with ability to palpate the dorsalis pedis pulse on the right, but not on the left and I was unable to palpate the posterior tibialis pulses bilaterally. He had distal brown induration. He had bandage on his left hand from his recent hand surgery. He was awake, alert. He knew where he was located and he knew who I was. He was able to give detailed history, appeared tired. His pupils were small about 2 mm, responsive to light bilaterally. I could not visualize his fundi. He had full extraocular movements with no nystagmus, full jerome to confrontation. His facial expression, sensation, and hearing were equal. Palate was upgoing. Tongue was midline. Sternocleidomastoid and trapezius were 5/5 in strength. There was tremor noted with his hand on his abdomen at rest, which he admits he has had tremor in the past with eating, which is worse in his right than left hand, but observed equal on exam. The tone was excellent in the upper extremities with good rapid alternating movements. There was no pronator drift. He gave good strength in his upper and lower extremities with the exception of bilateral APB, which were weak at 4-/5 and difficulty evaluating full strength in the left upper extremity secondary to bandaging. His vibration sensation was felt slightly at the toes and ankles, decreased at the left knee by 10 seconds, right knee was unclear, decreased at the right distal interphalangeal joint of the second finger by 10 seconds, normal in the left distal interphalangeal joint of the second finger. Cold sensation was decreased to the knee. Pinprick was decreased distal to the knee. Light touch did not produce any dysesthesias. Reflexes were 1+ in the upper extremities, absent in the lower extremities. Toes were equivocal. He could do [id number] and [id number] movements without difficulty with slight tremor noted with position and tension, particularly in the right upper extremity. There was significant pain over his feet with palpation. With slight pushing on the right medial malleolus, there was exquisite pain. There was pain over the metatarsal/tarsal joint of the second toe of the left foot. He had exquisite pain when pushing on the distal right Achilles tendon and when testing dorsiflexion of his right foot, he had pain on the dorsum of his foot where he resisted. When I moved his foot quickly to check reflexes at the ankles, this developed diffuse severe pain. Gait was not tested given clinical status. DIAGNOSTIC STUDIES/LAB DATA: Data includes lumbosacral CT scan, which was reviewed directly and had multiple findings as noted above of spinal stenosis and neural foraminal narrowing as well as osteoarthritis. Please see report for details. He also had a CT of the brain, which showed atrophy and some periventricular hypodensities consistent with small vessel ischemic disease. This film also was reviewed directly. Venous Doppler showed no lower extremity DVT, and his CTA of the chest was limited, but no PE was noted. He has had a transesophageal echocardiogram with no wall motion abnormality and ejection fraction of 60% to 65%. Please see report for further details. His laboratory tests have included CBC on his initial admit was 9.0 with slightly decreased hemoglobin and hematocrit at 12.1 and 36, platelets were normal at 194. He did have elevated monocytes. His metabolic panel showed elevated creatinine at 1.62, BUN was 30, glucose was 169, and hemoglobin A1c was 6.8%. His magnesium was slightly low at 1.7. His high-sensitivity C- reactive protein was elevated 164.2. His troponin was 0.01. Liver function tests were within normal limits. TSH was 2.91. IMPRESSION AND PLAN: Mr. Saba is a 78-year-old gentleman with a history of diabetes type 2, hypertension, hyperlipidemia, chronic back pain, chronic intermittent foot pain, now with worsening of symptoms to the point he cannot stand and walk resulting in admission on 12/23/18. The foot pain was what took him over the edge to admission. His exam shows exquisite point tenderness over different areas of his feet. This is unusual for neuropathy. Normally pain would be more diffuse with neuropathy, and his findings are severe pain over joints and with stretching of tendons. One must question if there is a component of acute inflammation such as gout in the setting of recent surgery. I have suggested getting a sedimentation rate, C- reactive protein, and uric acid as soon as possible. I also talked to Dr. Carmona about getting x-rays of his feet given the pain in his joints to make sure there is no new fracture or injury or inflammation. I would consider consultation with orthopedic specializing in feet pending results. He does have a peripheral neuropathy with very chronic history over 5 years without clear progression. The acute pain that he is experiencing now, and pain on examination would be unusual for neuropathy. He has been put on low dose Lyrica. In regards to his back, it appears this is also chronic. He gives history of lumbosacral spinal stenosis with improvement when leaning forward, difficulty standing upright for 5 years. There appears to be some pain going to his hips, and that his physicians could not find any etiology per the patient's report. He has had previous workup with Orthopedics and believes he has had an MRI of the back in the past. He went on to have injections and physical therapy just recently in October. He will be getting an MRI of the lumbosacral spine tomorrow , and we will check to make sure there is no suggestion of cauda equina syndrome. Nursing notes had indicated that there was inability to feel himself going to the bathroom both bowel and urination. On further detailed investigation with the patient, he indicates that he can actually feel the urge and the process of defecation and urination; however, it is difficult to getting help in time in the setting of diarrhea and it is difficult for him to use the urinal by himself with 1 hand. It is sometimes hard for him to find the button to push for nursing. We made sure on today's visit that the button was present, and I helped him in getting nursing and aides to help that during period of time I was present. In addition, I discussed his dilemma with his nursing staff. Cause for diarrhea is unclear. His C. difficile is negative. Dr. Carmona is working this up and I will defer to the hospitalist team. I will suggest rechecking the CBC and complete metabolic panel for electrolyte abnormalities and evidence of infection. He is eating yogurt at bedside today and I encouraged him to continue to do so. I will defer further evaluation and treatment to hospitalist team. Call to primary care during opening hours of clinic tomorrow may be further enlightening as to the acute recognition of chronic issues, as well as the change from his baseline. He is also overdue for postop wound care of his left hand and I have asked Dr. Carmona to call Surgery for care in the hospital, as the ability for him to get to the outpatient office, to be able to get his azar removed as well as bandage taken care of, could be limited resulting in potential complications. He has been ordered for PT and OT and I absolutely agree with proceeding. He may need to have further rehab. Tremor was noted today in both upper extremities that most likely represents essential tremor by history. He did have tremor when resting his hands on his abdomen. No other parkinsonian symptoms were noted on history or examination. TIME SPENT: Over 2 hours was spent in direct [id number] patient care with significant period of time spent educating the patient and regarding diagnosis, differential diagnosis, further evaluation and treatment; case was also discussed with Dr. Carmona and I will ask Dr. Alcantar to follow up with him tomorrow. Also, re-rounded with results of elevated uric acid, sedimentation rate, CRP and presumed diagnosis of gout. Discussed findings with Dr. Carmona who has started medication. Of note, a confounding factor is that Torsemide can cause hyperuricemia. Will sign out care to Dr. Alcantar tomorrow 12/29/18. [id number]/CPS #: [id number] MTDD
[2018-12-28] MEDS: Aspirin EC TAB* 81 MG TAB.EC PO SCH (17:10)
[2018-12-28] MEDS: ARIPiprazole TAB* 5 MG PO SCH (21:41)
[2018-12-29] MEDS: Levothyroxine TAB* 25 MCG TAB PO SCH (05:12)
[2018-12-29] MEDS: Heparin VIAL(*) 5000 UNITS/ML VIAL (FIVE THOUSAND) SUBCUT SCH ×3 (05:13→20:23)
[2018-12-29] MEDS: Torsemide TAB 10 MG PO SCH (09:16)
[2018-12-29] MEDS: Sertraline* 100 MG TAB PO SCH (09:17)
[2018-12-29] MEDS: metFORMIN* 1,000 MG TAB PO SCH ×2 (09:18→20:23)
[2018-12-29] MEDS: Allopurinol TAB* 100 MG PO SCH (09:18)
[2018-12-29] MEDS: Cyanocobalamin TAB* 500 MCG PO SCH (09:18)
[2018-12-29] MEDS: amLODIPine TAB* 5 MG PO SCH (09:18)
[2018-12-29] MEDS: Lisinopril TAB* 10 MG PO SCH (09:18)
[2018-12-29] MEDS: Vitamin B Complex TAB PO SCH (09:19)
[2018-12-29] MEDS: Atorvastatin* 80 MG TAB PO SCH (09:19)
[2018-12-29] MEDS: Prenatal Vitamin TAB PO SCH (09:19)
[2018-12-29] MEDS: Pregabalin CAP(*) 50 MG PO SCH ×2 (09:19→20:30)
[2018-12-29] MEDS: Ibuprofen TAB* 800 MG PO SCH ×3 (09:20→20:22)
[2018-12-29] MEDS: Metoprolol Tartrate TAB* 50 mg PO SCH ×2 (09:20→20:22)
--- NOTE | 2018-12-29 10:17 | PN ---
Subjective Date of Service: 12/29/18 Interval History: Pain in feet somewhat better but hasn't gotten out of bed today yet. No new c/ o. Family History: Unchanged from Admission Social History: Unchanged from Admission Past Medical History: Unchanged from Admission Objective Active Medications: Allopurinol (Zyloprim Tab*) 100 mg PO DAILY [facility] Last Admin: 12/29/18 09:18 Dose: 100 mg Amlodipine Besylate (Norvasc Tab*) 10 mg PO QAM [facility] Last Admin: 12/29/18 09:18 Dose: 10 mg Aripiprazole (Abilify Tab*) 5 mg PO BEDTIME [facility] Last Admin: 12/28/18 21:41 Dose: 5 mg Aspirin (Aspirin Ec Tab*) 81 mg PO QPM [facility] Last Admin: 12/28/18 17:10 Dose: 81 mg Atorvastatin Calcium (Lipitor*) 80 mg PO QAM [facility] Last Admin: 12/29/18 09:19 Dose: 80 mg Azelastine HCl (Astepro 0.15% Nasal (Nf)) 2 spray BOTH NARES BID PRN PRN Reason: Allergy Symptoms Cyanocobalamin (Vitamin B12 Tab*) 1,000 mcg PO QAM [facility] Last Admin: 12/29/18 09:18 Dose: 1,000 mcg Dicyclomine HCl (Bentyl Cap*) 10 mg PO QID PRN PRN Reason: PAIN Heparin Sodium (Porcine) (Heparin Vial(*)) 5,000 units SUBCUT Q8HR [facility] Last Admin: 12/29/18 05:13 Dose: 5,000 units Ibuprofen (Motrin Tab*) 800 mg PO TID [facility] Last Admin: 12/29/18 09:20 Dose: 800 mg Levothyroxine Sodium (Synthroid Tab*) 25 mcg PO 0600 [facility] Last Admin: 12/29/18 05:12 Dose: 25 mcg Lisinopril (Prinivil Tab*) 20 mg PO DAILY [facility] Last Admin: 12/29/18 09:18 Dose: 20 mg Loperamide HCl (Imodium Cap*) 2 mg PO QID PRN PRN Reason: DIARRHEA Last Admin: 12/28/18 17:12 Dose: 2 mg Lorazepam (Ativan Tab(*)) 0.5 mg PO Q8H PRN PRN Reason: ANXIETY Metformin HCl (Glucophage*) 500 mg PO BID [facility] Last Admin: 12/29/18 09:18 Dose: 500 mg Metoprolol Tartrate (Lopressor Tab*) 50 mg PO BID [facility] Last Admin: 12/29/18 09:20 Dose: 50 mg Multivitamins ( Vitamin Tab*) 1 tab PO QAM [facility] Last Admin: 12/29/18 09:19 Dose: 1 tab Ondansetron HCl (Zofran Inj*) 4 mg IV Q4H PRN PRN Reason: NAUSEA/VOMITING Last Admin: 12/27/18 00:16 Dose: 4 mg Oxycodone/Acetaminophen (Percocet 5/325 Tab*) 1 tab PO Q4H PRN PRN Reason: SEVERE PAIN Last Admin: 12/26/18 02:32 Dose: 1 tab Pregabalin (Lyrica Cap(*)) 50 mg PO BID [facility] Last Admin: 12/29/18 09:19 Dose: 50 mg Sertraline HCl (Zoloft*) 150 mg PO DAILY [facility] Last Admin: 12/29/18 09:17 Dose: 150 mg Torsemide (Torsemide) 20 mg PO DAILY [facility] Last Admin: 12/29/18 09:16 Dose: 20 mg Tramadol HCl (Ultram*) 50 mg PO Q6H PRN PRN Reason: PAIN Vitamin B Complex/Vitamin E (B Complex-50*) 1 tab PO QAM [facility] Last Admin: 12/29/18 09:19 Dose: 1 tab Vital Signs - 8 hr 12/29/18 12/29/18 12/29/18 03:06 07:25 07:40 Temperature 98.2 F 97.6 F Pulse Rate 60 58 Respiratory 16 19 18 Rate Blood Pressure 131/82 124/49 (mmHg) O2 Sat by Pulse 99 98 Oximetry 12/29/18 09:19 Temperature Pulse Rate Respiratory 17 Rate Blood Pressure (mmHg) O2 Sat by Pulse Oximetry Oxygen Devices in Use Now: None, CPAP Appearance: Alert, partly up in bed. In good spirits. Looks comfortable. Eyes: No Scleral Icterus Extremities: No Edema, No Clubbing, Cyanosis, - Skin: No Rash or Ulcers, No Nodules or Sclerosis, - Neurological: Alert and Oriented x 3, NL Sensation Result Diagrams: 12/28/18 13:26 12/28/18 13:25 Microbiology and Other Data: Microbiology 12/27/18 23:30 Stool Gross Appearance - Final Stool C. difficile DNA Amplification - Final 027 Presumptive NEGATIVE Toxigenic C.diff NEGATIVE Assess/Plan/Problems-Billing Mr. Saba is a 78 yo M with PMH of DM2, HTN, [place], HLD, CKD, and chronic pain; who presented to the ED with c/o low back pain and inability to ambulate and care for himself at home. - Patient Problems (1) Gait disorder Current Visit: Yes Status: Acute Code(s): R26.9 - UNSPECIFIED ABNORMALITIES OF GAIT AND MOBILITY SNOMED Code(s): 04019363 Comment: MRI lumbar spine w/o ordered. (2) Diabetes mellitus, type 2 Current Visit: Yes Status: Acute Comment: A1C 6.8% on 12/25/18. Continue metformin. (3) Hypertension Current Visit: Yes Status: Acute Code(s): I10 - ESSENTIAL (PRIMARY) HYPERTENSION SNOMED Code(s): 59739762 Comment: BP is under good control. Continue amlodipine, lisinopril, metoprolol. (4) Hypothyroidism Current Visit: Yes Status: Acute Code(s): E03.9 - HYPOTHYROIDISM, UNSPECIFIED SNOMED Code(s): 57417783 Comment: Continue current dose of levothyroxine, TSH 3.91 on 12/25/18. (5) Excessive daytime sleepiness Current Visit: Yes Status: Acute Code(s): G47.19 - OTHER HYPERSOMNIA SNOMED Code(s): 215329083559 Comment: D/C'd trazadone, last dose 12/26 PM, Reduced sertraline to 150 mg daily on 12/28, will reduce to 125 mg daily 12/30. Pt c/o still being sleepy all the time 12/29. (6) Gout Current Visit: Yes Status: Acute Code(s): M10.9 - GOUT, UNSPECIFIED SNOMED Code(s): 42214275 Comment: Uric acid 11.8, X-rays show joint space narrowing and erosive changes R first and second [id number] joints. Start ibuprofen 800 mg tid 2 PM 12/28, start allopurinol 100 mg daily 12/29. 2012 [place] [employer] (A[employer]) guidelines state there is no contraindication to starting allopurinol during an acute attack of gout if appropriate tx is given concomittantly. He may need a higher dose of allopurinol eventually to reduce his uric acid level adequately. Status and Disposition: At this time it does not appear the patient needs to remain in the hospital. The patient is not seeming to be motivated but may also be slightly confused. Case management will be calling the patient's to get more information.
--- NOTE | 2018-12-29 11:15 | PN ---
Subjective Date of Service: 12/29/18 Length of Stay: 6 Days Neurology is following for chronic pain in his feet. Interval History: He has less pain in his feet today. He would like to get up and move around. Reviewed Dr. Silva's note and extensive evaluation. He used his CPAP overnight. Review of Systems: Denied CP, SOB, or palpitations. Family History: Unchanged from Admission Social History: Unchanged from Admission Past Medical History: Unchanged from Admission Objective Active Medications: Allopurinol (Zyloprim Tab*) 100 mg PO DAILY [facility] Last Admin: 12/29/18 09:18 Dose: 100 mg Amlodipine Besylate (Norvasc Tab*) 10 mg PO QAM [facility] Last Admin: 12/29/18 09:18 Dose: 10 mg Aripiprazole (Abilify Tab*) 5 mg PO BEDTIME [facility] Last Admin: 12/28/18 21:41 Dose: 5 mg Aspirin (Aspirin Ec Tab*) 81 mg PO QPM [facility] Last Admin: 12/28/18 17:10 Dose: 81 mg Atorvastatin Calcium (Lipitor*) 80 mg PO QAM [facility] Last Admin: 12/29/18 09:19 Dose: 80 mg Azelastine HCl (Astepro 0.15% Nasal (Nf)) 2 spray BOTH NARES BID PRN PRN Reason: Allergy Symptoms Cyanocobalamin (Vitamin B12 Tab*) 1,000 mcg PO QAM [facility] Last Admin: 12/29/18 09:18 Dose: 1,000 mcg Dicyclomine HCl (Bentyl Cap*) 10 mg PO QID PRN PRN Reason: PAIN Heparin Sodium (Porcine) (Heparin Vial(*)) 5,000 units SUBCUT Q8HR [facility] Last Admin: 12/29/18 05:13 Dose: 5,000 units Ibuprofen (Motrin Tab*) 800 mg PO TID [facility] Last Admin: 12/29/18 09:20 Dose: 800 mg Levothyroxine Sodium (Synthroid Tab*) 25 mcg PO 0600 [facility] Last Admin: 12/29/18 05:12 Dose: 25 mcg Lisinopril (Prinivil Tab*) 20 mg PO DAILY [facility] Last Admin: 12/29/18 09:18 Dose: 20 mg Loperamide HCl (Imodium Cap*) 2 mg PO QID PRN PRN Reason: DIARRHEA Last Admin: 12/28/18 17:12 Dose: 2 mg Lorazepam (Ativan Tab(*)) 0.5 mg PO Q8H PRN PRN Reason: ANXIETY Metformin HCl (Glucophage*) 500 mg PO BID [facility] Last Admin: 12/29/18 09:18 Dose: 500 mg Metoprolol Tartrate (Lopressor Tab*) 50 mg PO BID [facility] Last Admin: 12/29/18 09:20 Dose: 50 mg Multivitamins ( Vitamin Tab*) 1 tab PO QAM [facility] Last Admin: 12/29/18 09:19 Dose: 1 tab Ondansetron HCl (Zofran Inj*) 4 mg IV Q4H PRN PRN Reason: NAUSEA/VOMITING Last Admin: 12/27/18 00:16 Dose: 4 mg Oxycodone/Acetaminophen (Percocet 5/325 Tab*) 1 tab PO Q4H PRN PRN Reason: SEVERE PAIN Last Admin: 12/26/18 02:32 Dose: 1 tab Pregabalin (Lyrica Cap(*)) 50 mg PO BID [facility] Last Admin: 12/29/18 09:19 Dose: 50 mg Sertraline HCl (Zoloft*) 125 mg PO DAILY [facility] Torsemide (Torsemide) 20 mg PO DAILY [facility] Last Admin: 12/29/18 09:16 Dose: 20 mg Tramadol HCl (Ultram*) 50 mg PO Q6H PRN PRN Reason: PAIN Vitamin B Complex/Vitamin E (B Complex-50*) 1 tab PO QAM [facility] Last Admin: 12/29/18 09:19 Dose: 1 tab Vital Signs 12/28/18 12/28/18 12/28/18 12:14 12:24 15:22 Temperature 97.8 F 96.9 F Pulse Rate 80 82 Respiratory 19 19 20 Rate Blood Pressure 92/54 116/51 (mmHg) O2 Sat by Pulse 99 95 Oximetry 12/28/18 12/28/18 12/28/18 17:12 19:47 19:51 Temperature 98.1 F Pulse Rate 83 Respiratory 20 24 24 Rate Blood Pressure 133/47 (mmHg) O2 Sat by Pulse Oximetry 12/28/18 12/28/18 12/28/18 20:01 21:37 23:58 Temperature 98.6 F Pulse Rate 67 Respiratory 24 18 16 Rate Blood Pressure 150/79 (mmHg) O2 Sat by Pulse 95 Oximetry 12/29/18 12/29/18 12/29/18 03:06 07:25 07:40 Temperature 98.2 F 97.6 F Pulse Rate 60 58 Respiratory 16 19 18 Rate Blood Pressure 131/82 124/49 (mmHg) O2 Sat by Pulse 99 98 Oximetry 12/29/18 09:19 Temperature Pulse Rate Respiratory 17 Rate Blood Pressure (mmHg) O2 Sat by Pulse Oximetry Intake and Output Last 24 Hours 12/27/18 12/28/18 12/29/18 12/30/18 06:59 06:59 06:59 06:59 Intake Total 1560 450 480 Output Total 800 650 625 Balance 1682 -751 -170 625 Intake: Oral 1560 450 480 Output: Urine 0 650 625 Liquid Stool 800 Other: Estimated Void Large Large # Bowel Movements 3 2 4 Estimated Stool Amount Large Medium Medium # Voids 1 3 Oxygen Devices in Use Now: None, CPAP Neurology Exam: General: Mild ill appearing man in no acute distress HEENT: Normocephelic/atraumatic, sclera anicteric, mucous membranes moist Extremities: Mild tenderness to palpation at the medial malleolus Neurological Findings: Awake, alert, and oriented to person, place, and time. Obese man in no acute distress. Speech: fluent without dysarthria, repetition intact Cranial Nerve: PERRL, EOM intact, Motor: s/s throughout, proximal and distal extremities x4 tone/bulk normal. Resting tremor was noted in the left upper extremity. No cogwheel rigidity. Sensation: intact to LT/PP bilaterally upper and lower extremities. He has distal to proximal sensory gradient demarcated at the ankles bilaterally. He felt the vibration minimally at the toes. Deep Tendon Reflex: 1+ in the upper and absent in the lower extremity. Finger to nose, rapid alternating movements intact without tremor, no dysdiadochokinesia Gait: n/a Result Diagrams: 12/28/18 13:26 12/28/18 13:25 Microbiology and Other Data: Microbiology 12/27/18 23:30 Stool Gross Appearance - Final Stool C. difficile DNA Amplification - Final 027 Presumptive NEGATIVE Toxigenic C.diff NEGATIVE Assessment/Plan 1. Bilateral distal lower extremity pain most likely due to Gout- he was started on Allopurinol and NSAID therapy. 2. Chronic degenerative disc disease of the LS spine- pending MRI of the L spine. If he has severe foraminal or spinal canal stenosis, then evaluation by NSG or orthopedics is recommended. 3. Essential tremors- non disabling. 4. Diabetic peripheral neuropathy- Agree with Low dose Lyrica. I will sign off. Please contact me for any questions or concerns.
[2018-12-29] MEDS: Aspirin EC TAB* 81 MG TAB.EC PO SCH (17:59)
[2018-12-29] MEDS: ARIPiprazole TAB* 5 MG PO SCH (20:22)
[2018-12-30] MEDS: Heparin VIAL(*) 5000 UNITS/ML VIAL (FIVE THOUSAND) SUBCUT SCH ×3 (05:15→20:15)
[2018-12-30] MEDS: Levothyroxine TAB* 25 MCG TAB PO SCH (05:15)
[2018-12-30 06:40] LABS: CO2 Carbon Dioxide 20 mmol/L (22-32); Calcium 8.8 mg/dL (8.6-10.3); Chloride 105 mmol/L (101-111); Sodium 136 mmol/L (135-145)
[2018-12-30 06:46] LABS: BUN/Creatinine Ratio 32.7 (8-20); Blood Urea Nitrogen 55 mg/dL (6-24); EGFR African American 47.9 (>60); EGFR Non-African American 39.6 (>60); Glucose 129 mg/dL (70-100)
[2018-12-30 06:52] LABS: Anion Gap 11 mmol/L (2-11)
[2018-12-30] MEDS: metFORMIN* 1,000 MG TAB PO SCH ×2 (08:03→20:15)
[2018-12-30] MEDS: amLODIPine TAB* 5 MG PO SCH (08:03)
[2018-12-30] MEDS: Atorvastatin* 80 MG TAB PO SCH (08:04)
[2018-12-30] MEDS: Prenatal Vitamin TAB PO SCH (08:04)
[2018-12-30] MEDS: Lisinopril TAB* 10 MG PO SCH (08:04)
[2018-12-30] MEDS: Torsemide TAB 10 MG PO SCH (08:05)
[2018-12-30] MEDS: Pregabalin CAP(*) 50 MG PO SCH ×2 (08:05→20:17)
[2018-12-30] MEDS: Vitamin B Complex TAB PO SCH (08:06)
[2018-12-30] MEDS: Metoprolol Tartrate TAB* 50 mg PO SCH ×2 (08:06→20:17)
[2018-12-30] MEDS: Ibuprofen TAB* 800 MG PO SCH ×3 (08:06→20:16)
[2018-12-30] MEDS: Cyanocobalamin TAB* 500 MCG PO SCH (08:07)
[2018-12-30] MEDS: Allopurinol TAB* 100 MG PO SCH (08:07)
[2018-12-30] MEDS: Sertraline* 50 MG TAB PO SCH (08:07)
--- NOTE | 2018-12-30 09:51 | PN ---
Subjective Date of Service: 12/30/18 Interval History: Patient walked 20 feet w/ walker this AM. He had not walked yesterday. Has 8/ 10 bilat foot pain, worse w/ weight bearing. Patient fell >2 weeks ago and injured tendons LT 3rd finger. Had tendon repair Dr. Pérez 12/16, has not had bandage taken down. No pain. Complains of chronic bilateral hip pain, attributes to back issues. Family History: Unchanged from Admission Social History: Unchanged from Admission Past Medical History: Unchanged from Admission Objective Active Medications: Allopurinol (Zyloprim Tab*) 100 mg PO DAILY [facility] Amlodipine Besylate (Norvasc Tab*) 10 mg PO QAM [facility] Last Admin: 12/30/18 08:03 Dose: 10 mg Aripiprazole (Abilify Tab*) 5 mg PO BEDTIME [facility] Last Admin: 12/29/18 20:22 Dose: 5 mg Aspirin (Aspirin Ec Tab*) 81 mg PO QPM [facility] Last Admin: 12/29/18 17:59 Dose: 81 mg Atorvastatin Calcium (Lipitor*) 80 mg PO QAM [facility] Last Admin: 12/30/18 08:04 Dose: 80 mg Azelastine HCl (Astepro 0.15% Nasal (Nf)) 2 spray BOTH NARES BID PRN PRN Reason: Allergy Symptoms Cyanocobalamin (Vitamin B12 Tab*) 1,000 mcg PO QAM [facility] Last Admin: 12/30/18 08:07 Dose: 1,000 mcg Dicyclomine HCl (Bentyl Cap*) 10 mg PO QID PRN PRN Reason: PAIN Heparin Sodium (Porcine) (Heparin Vial(*)) 5,000 units SUBCUT Q8HR [facility] Last Admin: 12/30/18 05:15 Dose: 5,000 units Ibuprofen (Motrin Tab*) 800 mg PO TID [facility] Last Admin: 12/30/18 08:06 Dose: 800 mg Levothyroxine Sodium (Synthroid Tab*) 25 mcg PO 0600 [facility] Last Admin: 12/30/18 05:15 Dose: 25 mcg Lisinopril (Prinivil Tab*) 20 mg PO DAILY [facility] Last Admin: 12/30/18 08:04 Dose: 20 mg Loperamide HCl (Imodium Cap*) 2 mg PO QID PRN PRN Reason: DIARRHEA Last Admin: 12/28/18 17:12 Dose: 2 mg Lorazepam (Ativan Tab(*)) 0.5 mg PO Q8H PRN PRN Reason: ANXIETY Metformin HCl (Glucophage*) 500 mg PO BID [facility] Last Admin: 12/30/18 08:03 Dose: 500 mg Metoprolol Tartrate (Lopressor Tab*) 50 mg PO BID [facility] Last Admin: 12/30/18 08:06 Dose: 50 mg Multivitamins ( Vitamin Tab*) 1 tab PO QAM [facility] Last Admin: 12/30/18 08:04 Dose: 1 tab Ondansetron HCl (Zofran Inj*) 4 mg IV Q4H PRN PRN Reason: NAUSEA/VOMITING Last Admin: 12/27/18 00:16 Dose: 4 mg Oxycodone/Acetaminophen (Percocet 5/325 Tab*) 1 tab PO Q4H PRN PRN Reason: SEVERE PAIN Last Admin: 12/26/18 02:32 Dose: 1 tab Pregabalin (Lyrica Cap(*)) 50 mg PO BID [facility] Last Admin: 12/30/18 08:05 Dose: 50 mg Sertraline HCl (Zoloft*) 125 mg PO DAILY [facility] Last Admin: 12/30/18 08:07 Dose: 125 mg Torsemide (Torsemide) 20 mg PO DAILY [facility] Last Admin: 12/30/18 08:05 Dose: 20 mg Tramadol HCl (Ultram*) 50 mg PO Q6H PRN PRN Reason: PAIN Vitamin B Complex/Vitamin E (B Complex-50*) 1 tab PO [facility] Last Admin: 12/30/18 08:06 Dose: 1 tab Vital Signs - 8 hr 12/30/18 12/30/18 12/30/18 03:11 07:40 07:57 Temperature 36.8 C 36.0 C Pulse Rate 57 56 Respiratory 20 20 16 Rate Blood Pressure 120/50 117/50 (mmHg) O2 Sat by Pulse 99 99 Oximetry Oxygen Devices in Use Now: None, CPAP - at night Appearance: alert, sitting in chair Ears/Nose/Mouth/Throat: NL Teeth, Lips, Gums Neck: NL Appearance and Movements; NL JVP Respiratory: Symmetrical Chest Expansion and Respiratory Effort, Clear to Auscultation Cardiovascular: NL Sounds; No Murmurs; No JVD, RRR Extremities: No Edema, - - no tophi or focal erythema, tenderness bilat LE/feet Skin: - - LT hand/3rd finger bandage taken down, sutures dorsum middle phalanx and palm clean/dry/intact, there is a erythematous depresion on volar surface 3rd finger, distal phalanx, where brace was apparently pressing on skin Lines/Tubes/Other Access: Clean, Dry and Intact Peripheral IV Result Diagrams: 12/28/18 13:26 12/30/18 06:10 Microbiology and Other Data: Assess/Plan/Problems-Billing 78 year old man w/ bilateral foot pain, diabetic peripheral neuropathy, gout, who acutely lost ability to ambulate. - Patient Problems (1) Gout Current Visit: Yes Status: Acute Priority: High Code(s): M10.9 - GOUT, UNSPECIFIED SNOMED Code(s): 37202811 Comment: -Will increase allopurinol to standard 300 mg dose -May have flare from allopurinol, may need oral prednisone or colchicine. -Will need titration based on uric acid in 1-2 months. -Ability to walk is returning (2) Gait disorder Current Visit: Yes Status: Acute Priority: Medium Code(s): R26.9 - UNSPECIFIED ABNORMALITIES OF GAIT AND MOBILITY SNOMED Code(s): 48202892 Comment: -May be multifactorial, due to DJD spine, gout, DM peripheral neuropathy, obesity, age -PT eval appreciated (3) Diabetes mellitus, type 2 Current Visit: Yes Status: Acute Priority: Medium Comment: -A1C 6.8% on 12/25/18. Continue metformin. -Diabetes under reasonable control (4) S/P tendon repair Current Visit: Yes Status: Acute Priority: Medium Code(s): Z98.890 - OTHER SPECIFIED POSTPROCEDURAL STATES SNOMED Code(s): 691585551 Comment: -Had surgery 12/16, wounds look fine -Will discuss hand PT, dressings, suture removal with Dr. Pérez. Status and Disposition: short term rehab is required, prefers [facility]
[2018-12-30] MEDS ORDERED: Allopurinol TAB* 100 MG PO ONE (11:00)
[2018-12-30] MEDS: Aspirin EC TAB* 81 MG TAB.EC PO SCH (17:39)
--- NOTE | 2018-12-30 17:50 | PN ---
Progress Note - Progress Note Date of Service: 12/30/18 SOAP: Subjective: [] Objective: [] sutured removed, steri strips and gauze wrap placed. Incisions healing well, CDI without erythema. Assessment: [] Plan: []
[2018-12-30] MEDS: ARIPiprazole TAB* 5 MG PO SCH (20:15)
[2018-12-31] MEDS: Heparin VIAL(*) 5000 UNITS/ML VIAL (FIVE THOUSAND) SUBCUT SCH ×2 (05:37→13:58)
[2018-12-31] MEDS: Levothyroxine TAB* 25 MCG TAB PO SCH (05:37)
[2018-12-31] MEDS: Torsemide TAB 10 MG PO SCH (08:18)
[2018-12-31] MEDS: amLODIPine TAB* 5 MG PO SCH (08:18)
[2018-12-31] MEDS: Ibuprofen TAB* 800 MG PO SCH ×2 (08:18→13:58)
[2018-12-31] MEDS: Lisinopril TAB* 10 MG PO SCH (08:18)
[2018-12-31] MEDS: Prenatal Vitamin TAB PO SCH (08:18)
[2018-12-31] MEDS: Vitamin B Complex TAB PO SCH (08:19)
[2018-12-31] MEDS: Pregabalin CAP(*) 50 MG PO SCH (08:19)
[2018-12-31] MEDS: Sertraline* 50 MG TAB PO SCH (08:19)
[2018-12-31] MEDS: Metoprolol Tartrate TAB* 50 mg PO SCH (08:19)
[2018-12-31] MEDS: Cyanocobalamin TAB* 500 MCG PO SCH (08:19)
[2018-12-31] MEDS: metFORMIN* 1,000 MG TAB PO SCH (08:19)
[2018-12-31] MEDS: Atorvastatin* 80 MG TAB PO SCH (08:19)
[2018-12-31] MEDS ORDERED: Allopurinol TAB* 100 MG PO SCH (09:00)
--- NOTE | 2018-12-31 13:40 | TRS ---
TRANSFER SUMMARY: DATE OF ADMISSION: 12/23/18 DATE OF DISCHARGE: 12/31/18 PRIMARY DIAGNOSIS: Gout, acute, bilateral foot and ankle. SECONDARY DIAGNOSES: 1. Diabetic peripheral neuropathy. 2. Chronic lower back pain with spinal stenosis, visible on MRI. 3. Obstructive sleep apnea, on CPAP. 4. Type 2 diabetes with chronic kidney disease and peripheral neuropathy as complications. 5. Hyperlipidemia. 6. Hypertension. 7. Irritable bowel syndrome. 8. Osteoarthritis. 9. Cataracts. 10. Migraines. 11. Depression. 12. Anxiety. 13. Recent tendon correction surgery, left third finger. MEDICATIONS ON DISCHARGE: 1. Amlodipine 10 mg p.o. q.a.m. 2. Abilify 5 mg p.o. at bedtime. 3. Aspirin 81 mg p.o. q. day. 4. Atorvastatin 80 mg p.o. q.h.s. 5. Azelastine nasal spray, 2 sprays both nostrils b.i.d. p.r.n. 6. Cyanocobalamin 1000 mcg p.o. q. day. 7. Dicyclomine 10 mg p.o. q.i.d. p.r.n. cramps. 8. Levothyroxine 25 mcg p.o. q.a.m. 9. Lisinopril 20 mg p.o. q. day. 10. Ativan 0.5 mg p.o. q.8 hours p.r.n. anxiety. 11. Metformin 500 mg p.o. b.i.d. 12. Metoprolol 50 mg p.o. b.i.d. 13. [place]-3 DHA EPA ALA. 14. vitamin D3 one chew p.o. q.a.m. 15. Sertraline 200 mg p.o. q. day. 16. Torsemide 20 mg p.o. q.a.m. 17. Trazodone 50 mg p.o. q.h.s. 18. Triamcinolone 0.1% cream to pruritic areas as needed. 19. Vitamin B complex 1 tab p.o. q.a.m. 20. Allopurinol 300 mg p.o. q. day. 21. Loperamide 2 mg p.o. q.i.d. p.r.n. diarrhea. 22. Lyrica 50 mg p.o. b.i.d. 23. Tramadol 50 mg p.o. q.6 hours p.r.n. pain. HOSPITAL COURSE: A 78-year-old man with the above medical history who presented to the hospital with inability to ambulate. He has had chronic back pain and neuropathy but had increasing tenderness an d pain with weightbearing on his feet. The patient's back pain was investigated with lumbosacral CT o n 12/23/18, which showed degenerative changes and severe narrowing of L2-L3, L3-L4, and L4-L5 at the central canal as well as multilevel foraminal narrowing. The patient had a head CT on 12/26/18 that showed some atrophy and resolution of a previous sinus effusion. MRI of the lumbar spine on 12/29/18 again showed degenerative disk disease and osteoarthritis with a severe narrowing of the central gretchen l at L4-L5 and moderate- to-severe narrowing at L3-L4 and moderate narrowing at L2-L3 as well as mult ilevel foraminal narrowing. The patient was seen in consultation by Dr. Silva of Neurology and fol lowed up with Dr. Alcantar. Dr. Silva felt that the patient's chronic back issues and chronic periphe ral neuropathy were contributing to his pain and difficulty walking but that the main issue was an ac deepali inflammation in the feet. The patient had bilateral foot x-rays taken on 12/28/18 that showed bilateral soft tissue swelling, j oint space narrowing, and erosive change in the right first and second MTP joints, suggestive of an i nflammatory process or septic arthritis. The patient's laboratory tests at that time were notable fo r an uric acid level of 11.8. His C-reactive protein was 117 and his sedimentation rate was 112. Th e opinion was that he has acute gout which was a new diagnosis for him causing worsening foot pain an d difficulty ambulating. The patient was started on allopurinol to treat gout and because of the ris k of gout flaring, allopurinol was started. He was treated with ibuprofen and we are ready to give h im steroids or colchicine if necessary, but that did not appear to be needed. On discharge, the ibup rofen is discontinued because of his chronic kidney disease. During his hospital stay, his creatinine has remained stable at 1.62 on the day of admission and 1.68 on the day of discharge. ABNORMALITIES DURING THE HOSPITAL STAY: He has diabetes was checked, with A1c of 6.8%. His blood lozano gars have been between 125 and 175 during the hospital stay. He has mild anemia with a hematocrit of 36%. No other significant abnormalities were noted in his LFTs, thyroid, etc. The patient did have hypoxia on admission and a chest CT angiogram on 12/23/18 showed no pulmonary em boli. It was felt that the patient had obesity hypoventilation syndrome. He was initially treated w ith supplemental oxygen as well as continued use of normal CPAP at night. On the day of discharge, h is O2 sats were 98% on room air. The patient was seen by Physical Therapy on 12/24/18 and followed up through 12/30/18. He was able t o walk with a walker and sit in the chair. Recommendation is that he go to subacute rehabilitation at [facility] at [facility]. He jeremiah uld be able to progress with his ambulation and go home in 1 to 2 weeks. FOLLOWUP: For his gout, we recommend rechecking his uric acid in 1 to 2 months and titrating the all opurinol as needed. His sedimentation rate should be rechecked as well as this very high level could be consistent with osteomyelitis. DISPOSITION: As I said to [facility]. STATUS: Inpatient. DIET: Diabetic. ACTIVITY: Walk with walker. No weightbearing restrictions. CONDITION: Stable. FOLLOWUP: Initially, he will be seen by Dr. Foster of the [facility] and then he should be seen in followup by Dr. Emerson for primary care upon discharge. TIME SPENT: I spent more than 45 minutes arranging the patient's discharge, completing necessary pap erwork for this complicated medical admission. [id number]/[facility] #: [id number]
[2018-12-31 15:49] VITALS: BP 98/51
== END 2018-12-31 17:30 | disposition swing bed (61) | DRG 553 ==
LOC: ED 11:04 → MEDTELE 18:46 → OBSVTOIN 12-25 12:00
PROVIDERS: ADMIT Internal Medicine; ATTEND Internal Medicine
DX: M10.9 Gout, unspecified (principal); J96.01 Acute respiratory failure with hypoxia; J98.11 Atelectasis; G89.29 Other chronic pain; M54.5 Low back pain; G47.33 Obstructive sleep apnea (adult) (pediatric); E11.22 Type 2 diabetes mellitus with diabetic chronic kidney disease; E78.5 Hyperlipidemia, unspecified; I12.9 Hypertensive chronic kidney disease with stage 1 through stage 4 chronic kidney disease, or unspecified chronic kidney disease; K58.9 Irritable bowel syndrome, unspecified; M19.90 Unspecified osteoarthritis, unspecified site; G43.909 Migraine, unspecified, not intractable, without status migrainosus; F32.9 Major depressive disorder, single episode, unspecified; F41.9 Anxiety disorder, unspecified; Z96.653 Presence of artificial knee joint, bilateral; Z96.611 Presence of right artificial shoulder joint; E78.00 Pure hypercholesterolemia, unspecified; M47.9 Spondylosis, unspecified; N18.3 Chronic kidney disease, stage 3 (moderate); E03.9 Hypothyroidism, unspecified; E11.42 Type 2 diabetes mellitus with diabetic polyneuropathy; R53.1 Weakness; R26.9 Unspecified abnormalities of gait and mobility; G47.19 Other hypersomnia; G25.0 Essential tremor; M51.37 Other intervertebral disc degeneration, lumbosacral region; M25.552 Pain in left hip; M25.551 Pain in right hip; M48.07 Spinal stenosis, lumbosacral region; R19.7 Diarrhea, unspecified; D64.9 Anemia, unspecified; Z82.49 Family history of ischemic heart disease and other diseases of the circulatory system; Z87.891 Personal history of nicotine dependence; Z72.89 Other problems related to lifestyle; Z98.42 Cataract extraction status, left eye; Z98.41 Cataract extraction status, right eye; Z98.890 Other specified postprocedural states; Z79.82 Long term (current) use of aspirin; Z79.84 Long term (current) use of oral hypoglycemic drugs
CPT/HCPCS: 36415; 70450; 71275; 72131; 72148; 80048; 80053; 83036; 83605; 83880; 84443; 84484; 84550; 85025; 85610; 85652; 85730; 86140; 86141; 87493; 93005; 93306; 93970; 94660; 94762; 99285; A9270-GY; C8929; G0378; G8978-GP-CL; G8979-GP-CI; J1644; J2405; J2930; J3010; Q9967

== ENCOUNTER 2021-06-16 08:34 | Observation (INO) ==
[2021-06-16 09:06] LABS: ABS Eosinophils 0.2 10^3/ul (0-0.6); ABS Monocytes 0.5 10^3/ul (0-0.8); ABS Neutrophils 4.6 10^3/ul (1.5-7.7); Hematocrit 38 % (42-52); Hemoglobin 12.9 g/dL (14.0-18.0); Lymphocyte % 15.6 %; Mean Corpuscular HGB Conc 34 g/dL (31-36); Mean Corpuscular Hemoglobin 33 pg (27-31); Mean Corpuscular Volume 98 fL (80-94); Mean Platelet Volume 7.6 fL (7.4-10.4); Nucleated Red Blood Cells % 0.1; Platelet Count 184 10^3/uL (150-450); Red Blood Count 3.91 10^6 /uL (4.18-5.48); Red Cell Distribution Width 13 % (10-15); White Blood Count 6.3 10^3/uL (3.5-10.8)
[2021-06-16 09:26] LABS: Albumin/Globulin Ratio 1.5 (1-3); Calcium 8.7 mg/dL (8.6-10.3); Globulin 2.6 g/dL (2-4); Potassium 4.5 mmol/L (3.5-5.0); Total Bilirubin 0.7 mg/dL (0.2-1.0); Total Protein 6.6 g/dL (6.4-8.9); eGFR CKD-EPI 34.6 (>60)
[2021-06-16] MEDS ORDERED: Iodixanol (CONTRAST) 320 MG/ML 100 ML SDV IV ONE (09:46)
[2021-06-16 10:05] LABS: T4, Total 5.14 mcg/dL (6.09-12.23)
[2021-06-16 10:09] LABS: TSH Ultra Thyroid Stim Horm 4.31 mcIU/mL (0.34-5.60)
[2021-06-16] MEDS ORDERED: Lactated Ringers 1000 ml BAG 1,000 ML IV ONE (16:09)
[2021-06-16] MEDS: Aspirin EC 81 mg TAB.EC (enteric coated) PO SCH (17:32)
[2021-06-16] MEDS ORDERED: Dextrose 50% Syringe 50 ml 25 GM/50 ML SYRINGE IV PUSH PRN (20:19)
[2021-06-16] MEDS: Carbidopa/Levodop 25/100 MG TAB PO SCH (21:15)
[2021-06-16] MEDS: Heparin 5000 UNITS/ML 1 mL VIAL SUBCUT SCH (21:15)
[2021-06-17 05:54] LABS: Urine Appearance Clear; Urine Bacteria Absent (Absent); Urine Bilirubin Negative (Negative); Urine Blood Negative (Negative); Urine Color Straw; Urine Glucose Negative (Negative); Urine Ketones Negative (Negative); Urine Nitrite Negative (Negative); Urine Protein Negative (Negative); Urine Red Blood Cell Trace(0-2/hpf) (Absent); Urine Specific Gravity 1.014 (1.002-1.030); Urine Urobilinogen Negative (Negative); Urine White Blood Cell Trace(0-5/hpf) (Absent)
[2021-06-17] MEDS: Heparin 5000 UNITS/ML 1 mL VIAL SUBCUT SCH ×3 (06:10→20:58)
[2021-06-17] MEDS: Carbidopa/Levodop 25/100 MG TAB PO SCH ×3 (08:37→20:57)
[2021-06-17 10:54] LABS: Calcium 8.9 mg/dL (8.6-10.3); Potassium 4.5 mmol/L (3.5-5.0); eGFR CKD-EPI 43.4 (>60)
[2021-06-17] MEDS: Aspirin EC 81 mg TAB.EC (enteric coated) PO SCH (18:38)
[2021-06-17 21:15] LABS: Urine Osmo 380 mOsm/kg (150-1150)
[2021-06-17 21:20] LABS: Urine Creatinine Concentration 52.57 mg/dL; Urine Potassium Concentration 29.3 mmol/L
[2021-06-18] MEDS: Heparin 5000 UNITS/ML 1 mL VIAL SUBCUT SCH ×3 (06:02→20:40)
[2021-06-18 06:17] LABS: Calcium 9.2 mg/dL (8.6-10.3); Magnesium 1.9 mg/dL (1.9-2.7); Potassium 4.7 mmol/L (3.5-5.0); eGFR CKD-EPI 34.4 (>60)
[2021-06-18] MEDS ORDERED: NS 0.9% 1000 ml BAG 1,000 ML IV SCH (08:00)
[2021-06-18] MEDS ORDERED: Perflutren Lipid Microsphere 3 ML VIAL ONE (08:40)
[2021-06-18] MEDS: Carbidopa/Levodop 25/100 MG TAB PO SCH ×3 (09:07→20:40)
[2021-06-18] MEDS: Aspirin EC 81 mg TAB.EC (enteric coated) PO SCH (17:26)
[2021-06-19] MEDS: Heparin 5000 UNITS/ML 1 mL VIAL SUBCUT SCH ×2 (06:26→13:23)
[2021-06-19 06:35] LABS: ABS Eosinophils 0.2 10^3/ul (0-0.6); ABS Lymphocytes 1.2 10^3/ul (1.0-4.8); ABS Monocytes 0.5 10^3/ul (0-0.8); ABS Neutrophils 2.7 10^3/ul (1.5-7.7); Hematocrit 38 % (42-52); Lymphocyte % 26.4 %; Mean Corpuscular HGB Conc 34 g/dL (31-36); Mean Corpuscular Hemoglobin 33 pg (27-31); Mean Corpuscular Volume 97 fL (80-94); Mean Platelet Volume 7.7 fL (7.4-10.4); Platelet Count 179 10^3/uL (150-450); Red Blood Count 3.93 10^6 /uL (4.18-5.48); Red Cell Distribution Width 13 % (10-15); White Blood Count 4.7 10^3/uL (3.5-10.8)
[2021-06-19 06:55] LABS: Calcium 9.2 mg/dL (8.6-10.3); Potassium 4.5 mmol/L (3.5-5.0); eGFR CKD-EPI 37.4 (>60)
[2021-06-19] MEDS: Carbidopa/Levodop 25/100 MG TAB PO SCH ×2 (11:28→13:22)
[2021-06-19] MEDS ORDERED: Regadenoson 0.4 MG/5 ML SYRINGE ONE (11:41)
[2021-06-19 14:31] VITALS: BP 106/63
== END 2021-06-19 16:00 | disposition home or self-care (01) ==
LOC: EDHOLD 08:34 → ED 08:34 → MEDTELE 16:42
PROVIDERS: ADMIT Internal Medicine; ATTEND Internal Medicine